=== PATIENT | female | born 1980 | race Caucasian/White ===

== ENCOUNTER 2018-12-21 15:14 | Inpatient (IN) ==
--- NOTE | 2018-12-21 16:18 | Emergency Department Note ---
Skin/Abscess/FB HPI - General Source: patient Mode of arrival: ambulatory Limitations: no limitations <Monica Hunt - Last Filed: 12/21/18 17:59> <QuintinDalton Tyler - Last Filed: 12/22/18 08:05> - General Chief complaint: Skin/Abscess/Foreign Body Stated complaint: right armpit abscess Time Seen by Provider: 12/21/18 15:29 - History of Present Illness HPI Narrative: 38-year-old female presents with non-improving abscess and cellulitis to the right axilla. Onset over week ago. She has been getting IV outpatient vancomycin therapy without relief. Dr. tinsley at wound care wanted her to come to the ER for further evaluation and possible admission today. There was some confusion on the vancomycin dosing and apparently she was under dose for the first several doses. Pharmacy has been dosing it since yesterday at the appropriate dose. Patient also states she was just told to warm pack it startin g yesterday. She is complaining of chills, unknown fever. States since starting the vancomycin she vomits several times a day and has constant nausea. States is definitely getting worse and not better. She is tearful and states she is in a lot of pain.It is continuing to drain purulent drainage. (Monica Hunt) - Related Data Home Medications Medication Instructions Recorded Confirmed ferrous sulfate 325 mg (65 mg See Dose Instructions PO QDAY tab 05/10/15 12/21/18 iron) tablet Albuterol Sulfate [Proair Hfa] 8.5 gm IH PRN PRN 01/09/17 12/21/18 Montelukast [Singular] 10 mg PO QDAY 01/09/17 12/21/18 albuterol sulfate HFA 90 See Rx Instructions INHALATION Q4H 10/10/17 12/21/18 mcg/actuation aerosol inhaler PRN g umeclidinium 62.5 mcg/actuation 1 inh INHALATION Q24H 10/10/17 12/21/18 blister powder for inhalation albuterol sulfate 2.5 mg/3 mL 2.5 mg INHALATION .Q4-5H PRN ml 02/18/18 12/21/18 (0.083 %) solution for nebulization budesonide-formoterol HFA 160 1 puff INHALATION BID g 02/18/18 12/21/18 mcg-4.5 mcg/actuation aerosol inhaler escitalopram 10 mg tablet 10 mg PO QDAY 02/18/18 12/21/18 triamcinolone acetonide 0.1 % 1 applic TOPICAL TIDP PRN g 02/18/18 12/21/18 topical cream Apixaban [Eliquis] 5 mg PO BID 12/07/18 12/21/18 losartan 100 mg tablet 100 mg PO QAM tab 12/16/18 12/21/18 omeprazole 40 mg capsule,delayed 40 mg PO QAM cap 12/16/18 12/21/18 release zolpidem 10 mg PO QHS PRN 12/16/18 12/21/18 Ascorbic Acid [Vitamin C with Chrissy 500 mg PO HS 12/18/18 12/21/18 Hips] Fluticasone/Vilanterol [Breo 1 puff INH DAILY 12/20/18 12/21/18 Ellipta 200-25 Mcg INH] RX: Hydrocodone/APAP 7.5/325Mg 1 tab PO Q4-6HP PRN 12/20/18 12/21/18 [[place] 7.5-325Mg] Previous Rx's Medication Instructions Recorded epinephrine 0.3 mg/0.3 mL 0.3 mg IM ONCE PRN #1 each 07/14/15 injection, auto-injector Allergies Allergy/AdvReac Type Severity Reaction Status Date / Time Amoxicillin Allergy Severe Anaphylaxis Verified 12/21/18 15:17 cephalexin Allergy Severe Swelling Verified 12/21/18 19:02 of Lip/Tongue/Throat Cephalosporins Allergy Severe Throat Verified 12/21/18 19:02 swelling doxycycline Allergy Severe Vomiting Verified 12/21/18 15:17 peanut Allergy Severe Anaphylaxis Verified 12/21/18 15:17 Penicillins Allergy Severe Anaphylaxis Verified 12/21/18 15:17 promethazine Allergy Severe Difficulty Verified 12/21/18 15:17 Breathing Sulfa (Sulfonamide Allergy Severe Hives Verified 12/21/18 15:17 Antibiotics) walnut Allergy Severe Anaphylaxis Verified 12/21/18 15:17 adhesive tape Allergy Intermediate Rash Verified 12/21/18 15:17 codeine Allergy Intermediate Hives Verified 12/21/18 15:17 [From Tylenol-Codeine #3] methocarbamol Allergy Mild Shakiness Verified 12/21/18 15:17 murillo pepper Allergy Mild Sores in Uncoded 12/20/18 21:15 mouth and throat Review of Systems All systems ED: reviewed and negative except as stated. 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 Surgical history ED: Reports: appendectomy, hysterectomy, orthopedic, other - Social History smoking status: Former smoker Alcohol use: Reports: Rarely Drug use: Reports: none <Monica Hunt - Last Filed: 12/21/18 17:59> - Past Medical History [facility] Narrative: Medical History (Last Updated 12/16/18 @ 13:13 by Leda Duarte) Chest wall pain (Chronic) Costochondral chest pain (Chronic) Insomnia (Chronic) Rib pain (Chronic) Peripheral edema (Chronic) Hypertension (Chronic) Localized swelling, mass and lump, left lower limb (Chronic) Seasonal allergies (Chronic) 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) Flank pain (Chronic) Acute sinusitis (Chronic) Sepsis (Chronic ~09/2018) SOB (shortness of breath) (Chronic) Morbid obesity (Chronic) Osteoarthritis of knees, bilateral (Chronic) Pulmonary embolism (Chronic) Respiratory failure (Chronic) Recurrent acute sinusitis (Chronic) Post-nasal drip (Chronic) Migraine headache (Chronic) Elevated blood pressure reading without diagnosis of hypertension (Chronic) GERD (gastroesophageal reflux disease) (Chronic) Personal history of anaphylaxis (Chronic) Anxiety (Chronic) Chronic sinusitis (Chronic) Night terrors (Chronic) Axillary lymphadenopathy (Chronic) Viral bronchitis (Chronic) Skin rash (Chronic) Right knee pain (Chronic) Cough (Chronic) Asthma exacerbation (Chronic) Chronic asthma (Chronic) Acute conjunctivitis, right eye (Chronic) Abdominal pain (Chronic) Pelvic pain (Chronic) Encounter for postoperative wound check (Chronic) Pain, dental (Chronic) Gastric acidity (Chronic) Allergic reaction (Chronic) Dental caries (Chronic) Dental abscess (Chronic) Low back pain (Chronic) Asthma with exacerbation (Chronic) Croup due to viral infection (Chronic) Asthma with acute exacerbation (Chronic) Nausea and vomiting (Chronic) Chronic abdominal pain (Chronic) Pelvic pain (Chronic) Acute exacerbation of chronic obstructive airways disease (Chronic) Bronchitis (Chronic) Right lower quadrant abdominal pain (Chronic) Abdominal pain (Chronic) Gastroenteritis (Chronic) Abdominal pain (Chronic) Gastritis (Chronic) Nausea & vomiting (Chronic) Animal bite of finger (Chronic 07/07/15) Epigastric abdominal pain (Chronic) Posttraumatic stress disorder (Chronic) History of hysterectomy (Chronic) Ovarian cyst (Chronic) Obesity (Chronic) Migraine (Chronic) Hip pain (Chronic) Asthma (Chronic) Anemia (Chronic) Abdominal pain, epigastric (Chronic 03/07/15) Kidney stones (Chronic ~2008) Pain of left calf (Resolved 03/21/15) Past Surgical History (Last Updated 12/16/18 @ 13:08 by Leda Duarte) History of tubal ligation (Chronic) History of tonsillectomy (Chronic) History of shoulder surgery (Chronic) History of nasal septoplasty (Chronic) History of partial hysterectomy (Chronic) Hx of appendectomy (Chronic) Hx of sinus surgery (Chronic) (Monica Hunt) Physical Exam Limitations: no limitations General appearance: alert, other (Tearful) Head: atraumatic, normocephalic, normal inspection Eye: Present: normal appearance. Absent: conjunctival injection ENT: normal exam, mucous membranes moist Neck: Present: normal inspection, trachea midline. Absent: tenderness, lymphadenopathy Chest: Present: symmetric chest wall rise Respiratory: Absent: respiratory distress, wheezes, accessory muscle use Cardiovascular: Present: regular rate Neurological: Present: alert, oriented X3 Psychiatric: Present: normal affect, normal mood Skin: Present: warm, dry, normal color, erythema (Right axilla with 4 cm abscess that is red and hard, slightly in the boggy in the center and is draining purulent drainage. Redness and cellulitis experience down mid axilla down the right chest wall, laterally 22 cm in diameter. Warm to touch.) <Monica Hunt - Last Filed: 12/21/18 17:59> Course <Monica Hunt - Last Filed: 12/21/18 17:59> Course Narrative: @1750 Dr. Goldstein accepted patient. (Monica Hunt) Vital Signs Temperature 98.0 F 12/21/18 15:14 Pulse Rate 89 12/21/18 15:14 Respiratory Rate 20 12/21/18 15:14 Blood Pressure 172/88 12/21/18 15:14 Pulse Oximetry (%) 100 12/21/18 15:14 Temperature 96.2 F L 12/22/18 07:24 Pulse Rate 72 12/22/18 07:24 Respiratory Rate 16 12/22/18 07:24 Blood Pressure 118/70 12/22/18 07:24 Pulse Oximetry (%) 91 12/22/18 07:24 Skin/Abscess/Foreign Body - Lab Data Result diagrams: 12/21/18 16:25 12/21/18 16:25 <Monica Hunt - Last Filed: 12/21/18 17:59> - Lab Data Result diagrams: 12/21/18 16:25 12/21/18 16:25 <Dalton Ribeiro - Last Filed: 12/22/18 08:05> - MDM Narrative Medical decision making narrative: Agree with diagnosis and treatment (Dalton Ribeiro) - Lab Data Lab Results 12/21/18 12/21/18 12/21/18 Range/Units 16:15 16:25 16:25 WBC 7.8 (4.5-11.0) K/mcL RBC 4.04 (4.00-5.20) M/mcL Hgb 11.8 L (12.0-15.0) g/dL Hct 36.1 (36.0-48.0) % MCV 89.6 (80.0-100.0) fL MCH 29.2 (26.0-34.0) pg MCHC 32.6 (31.0-36.0) g/dL RDW 14.3 (11.5-14.5) % Plt Count 543 H (140-440) K/mcL MPV 8.3 (7.4-10.4) fL Gran % 57.9 (38.0-78.0) % Lymph % (Auto) 29.6 (15.5-49.0) % [place] % (Auto) 9.4 (1.0-12.0) % Eos % (Auto) 2.7 (0.0-7.0) % Baso % (Auto) 0.4 (0.0-2.0) % Gran # 4.5 (1.8-8.0) K/mcL Lymph # (Auto) 2.3 (1.5-4.8) K/mcL [place] # (Auto) 0.7 (0.1-0.9) K/mcL Eos # (Auto) 0.2 (0.0-0.7) K/mcL Baso # (Auto) 0 (0.0-0.3) K/mcL VBG Lactic Acid 0.8 (0.5-2.0) mmol/L Sodium (133-145) mmol/L Potassium (3.3-5.1) mmol/L Chloride (96-108) mmol/L Carbon Dioxide (22-30) mmol/L Anion Gap (8-16) BUN (6-20) mg/dl Creatinine (0.6-1.1) mg/dl GFR Calculation Glucose (70-105) mg/dL Calcium (8.6-10.4) mg/dl Total Bilirubin (0.0-1.0) mg/dL AST (0-37) U/l ALT (0-40) U/l Alkaline Phosphatase (39-117) U/L Total Protein (5.9-8.4) gm/dL Albumin (3.2-5.2) gm/dL Globulin (2.2-3.7) gm/dL Albumin/Globulin Ratio (1.0-2.3) Urine Color Straw Urine Appearance Clear Urine pH 6.0 (5.0-9.0) Ur Specific [place] 1.006 (1.000-1.035) Urine Protein Neg (NEG) mg/dL Urine Glucose (UA) Negative (NEG) mg/dL Urine Ketones Neg (NEG) mg/dL Urine Occult Blood Neg (<0.03) mg/dL Urine Nitrate Neg (NEG) Urine Bilirubin Neg (NEG) mg/dL Urine Urobilinogen Neg (NEG) mg/dL Ur Leukocyte Esterase 75 A (NEG) /uL Urine RBC 0 (0-1) /hpf Urine WBC 1 (0-4) /hpf Ur Squamous Epith Cells 2 (0-4) /hpf Urine Bacteria 0 (0) /hpf Urine Mucus Few (0) /hpf Ur Culture Indicated? No HIV 1&2 Ag/Ab, 4th Gen 12/21/18 12/21/18 Range/Units 16:25 18:41 WBC (4.5-11.0) K/mcL RBC (4.00-5.20) M/mcL Hgb (12.0-15.0) g/dL Hct (36.0-48.0) % MCV (80.0-100.0) fL MCH (26.0-34.0) pg MCHC (31.0-36.0) g/dL RDW (11.5-14.5) % Plt Count (140-440) K/mcL MPV (7.4-10.4) fL Gran % (38.0-78.0) % Lymph % (Auto) (15.5-49.0) % Wilkes % (Auto) (1.0-12.0) % Eos % (Auto) (0.0-7.0) % Baso % (Auto) (0.0-2.0) % Gran # (1.8-8.0) K/mcL Lymph # (Auto) (1.5-4.8) K/mcL [place] # (Auto) (0.1-0.9) K/mcL Eos # (Auto) (0.0-0.7) K/mcL Baso # (Auto) (0.0-0.3) K/mcL VBG Lactic Acid (0.5-2.0) mmol/L Sodium 139 (133-145) mmol/L Potassium 3.3 (3.3-5.1) mmol/L Chloride 103 (96-108) mmol/L Carbon Dioxide 27 (22-30) mmol/L Anion Gap 9.0 (8-16) BUN 4 L (6-20) mg/dl Creatinine 0.7 (0.6-1.1) mg/dl GFR Calculation 109 Glucose 96 (70-105) mg/dL Calcium 9.0 (8.6-10.4) mg/dl Total Bilirubin 0.2 (0.0-1.0) mg/dL AST 17 (0-37) U/l ALT 21 (0-40) U/l Alkaline Phosphatase 59 (39-117) U/L Total Protein 6.8 (5.9-8.4) gm/dL Albumin 3.5 (3.2-5.2) gm/dL Globulin 3.3 (2.2-3.7) gm/dL Albumin/Globulin Ratio 1.1 (1.0-2.3) Urine Color Urine Appearance Urine pH (5.0-9.0) Ur Specific [place] (1.000-1.035) Urine Protein (NEG) mg/dL Urine Glucose (UA) (NEG) mg/dL Urine Ketones (NEG) mg/dL Urine Occult Blood (<0.03) mg/dL Urine Nitrate (NEG) Urine Bilirubin (NEG) mg/dL Urine Urobilinogen (NEG) mg/dL Ur Leukocyte Esterase (NEG) /uL Urine RBC (0-1) /hpf Urine WBC (0-4) /hpf Ur Squamous Epith Cells (0-4) /hpf Urine Bacteria (0) /hpf Urine Mucus (0) /hpf Ur Culture Indicated? 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
[2018-12-21 17:36] LABS: Basophils # (Auto) 0 K/mcL (0.0-0.3); Basophils % (Auto) 0.4 % (0.0-2.0); Eosinophils # (Auto) 0.2 K/mcL (0.0-0.7); Eosinophils % (Auto) 2.7 % (0.0-7.0); Granulocytes % (Auto) 57.9 % (38.0-78.0); Lymphocytes # (Auto) 2.3 K/mcL (1.5-4.8); Lymphocytes % (Auto) 29.6 % (15.5-49.0); Mean Cell Volume 89.6 fL (80.0-100.0); Mean Corpuscular HGB Conc 32.6 g/dL (31.0-36.0); Monocytes # (Auto) 0.7 K/mcL (0.1-0.9); Monocytes % (Auto) 9.4 % (1.0-12.0); Platelet Count 543 K/mcL (140-440); RBC 4.04 M/mcL (4.00-5.20); Red Cell Distribution Width 14.3 % (11.5-14.5)
[2018-12-21 17:37] LABS: ALT/SGPT 21 U/l (0-40); Albumin 3.5 gm/dL (3.2-5.2); Albumin/Globulin Ratio 1.1 (1.0-2.3); Alkaline Phosphatase 59 U/L (39-117); Blood Urea Nitrogen 4 mg/dl (6-20)
--- NOTE | 2018-12-21 18:00 | Emergency Department Note ---
ED Note Addendum Note Addendum: Lab and x-ray reviewed with Dr. Goldstein has been contacted patient to be admitted agree with diagnosis and treatment
[2018-12-21] MEDS ORDERED: KETOROLAC 15 MG/ML VIAL IV ONE ×2 (18:01→19:03)
[2018-12-21] MEDS ORDERED: HYDROmorphone 2 MG/ML VIAL IV PRN (18:01)
[2018-12-21 18:03] LABS: Appearance,Urine CLEAR; Bacteria,Urine 0 /hpf (0); Bilirubin,Urine NEG (NEG); Color,Urine STRAW; Glucose,Urine (UA) NEGATIVE (NEG); Leukocyte Esterase,Urine 75 /uL (NEG); Mucus,Urine FEW /hpf (0); Protein,Urine NEG (NEG); Specific Gravity,Urine 1.006 (1.000-1.035); Urine Blood NEG mg/dL (<0.03); Urine RBC 0 /hpf (0-1); Urine Squamous Epithelial Cell 2 /hpf (0-4); Urine WBC 1 /hpf (0-4); Urobilinogen,Urine NEG (NEG)
--- NOTE | 2018-12-21 18:29 | Internal Med History&Physical ---
Medical - H&P: HPI Patient information: Note initiated : 12/21/18 at 6:21 pm Service Date, if different from initiated Date: [] Patient: Yulia Loyd a 38 y/o F admitted on for right armpit abscess. Chief Complaint: [] History of present illness: Ms. Loyd is a 38 year old F with morbid obesity, htn, asthma presents to the er from the wound care clinic for evaluation of wound in the right axillary region. The patient notes that this started 2 weeks ago started as a small pustule which spread gradually. She was here I believe last week and was evaluated for same, had an incision and drainage done and was asked to follow-up in the wound care clinic. She was also started on vancomycin as an outpatient. She was seen in the wound care clinic today and was deemed that the infection was not getting better but indeed spreading. The patient has had difficulty in moving her arm because of the pain. She therefore presented back to the emergency room. The patient admits to having some fever and chills in the past which is not that at this time, she admits to having some nausea, and severe pain in the right axilla. Pain is worse with movement better with pain meds. She has been taking vancomycin for same and she is allergic to penicillin group of antibiotics. In the emergency room on presentation patient was afebrile, hemodynamically stable. Labs reviewed unremarkable. Patient had a huge area of induration in the right axilla, 8 x 8 cm in diameter with surrounding erythema warm to touch and very tender. I was able to express some pus on lightly expressing the indurated region. Ultrasound of the region was done, the tech noted that there is no evidence of obvious abscess or pocket lesions, clinically however there seems to be an abscess there. 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) Flank pain (Chronic) Acute sinusitis (Chronic) Sepsis (Chronic ~09/2018) SOB (shortness of breath) (Chronic) Morbid obesity (Chronic) Osteoarthritis of knees, bilateral (Chronic) Pulmonary embolism (Chronic) Respiratory failure (Chronic) Recurrent acute sinusitis (Chronic) Post-nasal drip (Chronic) Migraine headache (Chronic) Elevated blood pressure reading without diagnosis of hypertension (Chronic) GERD (gastroesophageal reflux disease) (Chronic) Personal history of anaphylaxis (Chronic) Anxiety (Chronic) Chronic sinusitis (Chronic) Night terrors (Chronic) Axillary lymphadenopathy (Chronic) Viral bronchitis (Chronic) Skin rash (Chronic) Right knee pain (Chronic) Cough (Chronic) Asthma exacerbation (Chronic) Chronic asthma (Chronic) Acute conjunctivitis, right eye (Chronic) Abdominal pain (Chronic) Pelvic pain (Chronic) Encounter for postoperative wound check (Chronic) Pain, dental (Chronic) Gastric acidity (Chronic) Allergic reaction (Chronic) Dental caries (Chronic) Dental abscess (Chronic) Low back pain (Chronic) Asthma with exacerbation (Chronic) Croup due to viral infection (Chronic) Asthma with acute exacerbation (Chronic) Nausea and vomiting (Chronic) Chronic abdominal pain (Chronic) Pelvic pain (Chronic) Acute exacerbation of chronic obstructive airways disease (Chronic) Bronchitis (Chronic) Right lower quadrant abdominal pain (Chronic) Abdominal pain (Chronic) Gastroenteritis (Chronic) Abdominal pain (Chronic) Gastritis (Chronic) Nausea & vomiting (Chronic) Animal bite of finger (Chronic 07/07/15) Epigastric abdominal pain (Chronic) Posttraumatic stress disorder (Chronic) History of hysterectomy (Chronic) Ovarian cyst (Chronic) Obesity (Chronic) Migraine (Chronic) Hip pain (Chronic) Asthma (Chronic) Anemia (Chronic) Abdominal pain, epigastric (Chronic 03/07/15) Kidney stones (Chronic ~2008) Pain of left calf (Resolved 03/21/15) Surgical history: Past Surgical History (Last Updated 12/16/18 @ 13:08 by Leda Duarte) History of tubal ligation (Chronic) History of tonsillectomy (Chronic) History of shoulder surgery (Chronic) History of nasal septoplasty (Chronic) History of partial hysterectomy (Chronic) Hx of appendectomy (Chronic) Hx of sinus surgery (Chronic) Pertinent family history: Family History (Last Updated 12/16/18 @ 11:15 by Leda Duarte) Unknown Asthma Essential hypertension Lymphoma Malignant neoplasm of ovary 5 Maternal Aunts Malignant neoplasm of breast Maternal Aunt Malignant neoplasm of ovary Hodgkin disease Grandmother Lymphoma Grandfather Diabetes Father Essential hypertension Heart disease, Onset Age: 35 History of heart bypass surgery History of heart artery stent Myocardial infarction Mother Lymphoma, Onset Age: 58 Medical - H&P: Meds Home Medications Medication Instructions Recorded Confirmed Type ferrous sulfate 325 mg (65 mg See Dose Instructions PO QDAY tab 05/10/15 12/21/18 History iron) tablet epinephrine 0.3 mg/0.3 mL 0.3 mg IM ONCE PRN #1 each 07/14/15 12/21/18 Rx injection, auto-injector Albuterol Sulfate [Proair Hfa] 8.5 gm IH PRN PRN 01/09/17 12/21/18 History Montelukast [Singular] 10 mg PO QDAY 01/09/17 12/21/18 History albuterol sulfate HFA 90 See Rx Instructions INHALATION Q4H 10/10/17 12/21/18 History mcg/actuation aerosol inhaler PRN g umeclidinium 62.5 mcg/actuation 1 inh INHALATION Q24H 10/10/17 12/21/18 History blister powder for inhalation albuterol sulfate 2.5 mg/3 mL 2.5 mg INHALATION .Q4-5H ml 02/18/18 12/21/18 History (0.083 %) solution for nebulization budesonide-formoterol HFA 160 1 puff INHALATION BID g 02/18/18 12/21/18 History mcg-4.5 mcg/actuation aerosol inhaler escitalopram 10 mg tablet 10 mg PO QDAY 02/18/18 12/21/18 History triamcinolone acetonide 0.1 % 1 applic TOPICAL TIDP PRN g 02/18/18 12/21/18 History topical cream Apixaban [Eliquis] 5 mg PO BID 12/07/18 12/21/18 History losartan 100 mg tablet 100 mg PO QAM tab 12/16/18 12/21/18 History omeprazole 40 mg capsule,delayed 40 mg PO QAM cap 12/16/18 12/21/18 History release zolpidem 10 mg PO QHS PRN 12/16/18 12/21/18 History Ascorbic Acid [Vitamin C with Chrissy 500 mg PO DAILY 12/18/18 12/21/18 History Hips] Fluticasone/Vilanterol [Breo 1 puff INH DAILY 12/20/18 12/21/18 History Ellipta 200-25 Mcg INH] Hydrocodone/APAP 7.5/325Mg [[place] 1 tab PO Q4-6HP PRN 12/20/18 12/21/18 History 7.5-325Mg] Allergies Allergy/AdvReac Type Severity Reaction Status Date / Time Amoxicillin Allergy Severe Anaphylaxis Verified 12/21/18 15:17 doxycycline Allergy Severe Vomiting Verified 12/21/18 15:17 peanut Allergy Severe Anaphylaxis Verified 12/21/18 15:17 Penicillins Allergy Severe Anaphylaxis Verified 12/21/18 15:17 promethazine Allergy Severe Difficulty Verified 12/21/18 15:17 Breathing Sulfa (Sulfonamide Allergy Severe Hives Verified 12/21/18 15:17 Antibiotics) walnut Allergy Severe Anaphylaxis Verified 12/21/18 15:17 adhesive tape Allergy Intermediate Rash Verified 12/21/18 15:17 cephalexin Allergy Intermediate Swelling Verified 12/21/18 15:17 of Lip/Tongue/Throat Cephalosporins Allergy Intermediate Throat Verified 12/21/18 15:17 swelling codeine Allergy Intermediate Hives Verified 12/21/18 15:17 [From Tylenol-Codeine #3] methocarbamol Allergy Mild Shakiness Verified 12/21/18 15:17 murillo pepper Allergy Mild Sores in Uncoded 12/20/18 21:15 mouth and throat Medical - H&P: Exam - Constitutional Vitals: Temp Pulse Resp BP Pulse Ox 98.0 F 84 82 H 177/88 100 12/21/18 15:14 12/21/18 18:02 12/21/18 16:39 12/21/18 18:02 12/21/18 18:02 Exam: GENERAL: The patient is a well-developed, well-nourished in no apparent distress. Is alert and oriented x3. Morbidly obese individual VITAL SIGNS: Reviewed and as noted elsewhere. HEENT: Head is normocephalic and atraumatic. Extraocular muscles are intact. Pupils are equal, round, and reactive to light. Nares appeared normal. Mouth appears any without lesions. Mucous membranes are moist. NECK: Normal to inspection, Supple, No lymphadenopathy or thyromegaly. LUNGS: Air entry equal on both sides, no wheezing, crackles or rhonchi noted. No accessory muscles of respiration HEART: Regular rate and rhythm normal, S1 and S2 heard, no Gallop, S3 or Rub Noted, No Gross murmur heard. ABDOMEN: Soft, nontender, and nondistended. Positive bowel sounds. No hepatosplenomegaly was noted. EXTREMITIES: No cyanosis, clubbing, rash, lesions or edema. Right axilla-area of induration, 8 x 8 cm irregular, firm, able to express pus from the mouth of the lesion, surrounding cellulitis noted NEUROLOGIC: Cranial nerves II through XII are grossly intact. Motor and Sensory System Grossly Intact PSYCHIATRIC: Normal affect, Normal Mood. Appropriate Behavior. SKIN: No ulceration or wounds noted, No jaundice, No rash noted. Medical - H&P: Reslt - Labs CBC & Chem 7: 12/21/18 16:25 12/21/18 16:25 Labs: Short CBC 12/21/18 Range/Units 16:25 WBC 7.8 (4.5-11.0) K/mcL Hgb 11.8 L (12.0-15.0) g/dL Hct 36.1 (36.0-48.0) % Plt Count 543 H (140-440) K/mcL BMP 12/21/18 16:25 Sodium 139 Potassium 3.3 Chloride 103 Carbon Dioxide 27 BUN 4 L Creatinine 0.7 Glucose 96 Calcium 9.0 Liver Function 12/21/18 Range/Units 16:25 Total Bilirubin 0.2 (0.0-1.0) mg/dL AST 17 (0-37) U/l ALT 21 (0-40) U/l Alkaline Phosphatase 59 (39-117) U/L Albumin 3.5 (3.2-5.2) gm/dL Urine 12/21/18 Range/Units 16:15 Urine Color Straw Urine Appearance Clear Urine pH 6.0 (5.0-9.0) Ur Specific [place] 1.006 (1.000-1.035) Urine Protein Neg (NEG) mg/dL Urine Glucose (UA) Negative (NEG) mg/dL Medical - H&P: A/P - Narrative A/P Narrative: A/P Cellulitis and Abscess -Surgery consult, IV antibiotics NPO MN Pt is on eliquis, last dose? will need to review, hold for now. a1c checked this year is neg check h1v status DVT -due to picc line, in september last year, on eliquis for nwo Asthma no wheezing noted, resume home meds duonebs for q6hrs for now Morbid obesty outpatient follow up HTN hold losartan for now, given plan for surgery monitor bp, anxiety resume home meds DVT on eliquis held for now, resume post op Full code Regular diet for now NPO MN Social History - Social History marital status: occupational status: unemployed, employed hx recent travel: No - Exercise physical activity: other - Tobacco smoking status: Former smoker - Alcohol alcohol intake frequency: does not drink - Substance use substance use type: does not use
[2018-12-21] MEDS ORDERED: ACETAMINOPHEN 650 MG/65 ML BOTTLE IV PRN (19:03)
[2018-12-21] MEDS ORDERED: KETOROLAC 15 MG/ML VIAL IV PRN (19:03)
[2018-12-21] MEDS ORDERED: ONDANSETRON 4 MG/2 ML VIAL IV PRN (19:03)
[2018-12-21] MEDS ORDERED: NALOXONE HCL 0.4 MG/ML VIAL IV PRN (19:03)
[2018-12-21] MEDS ORDERED: ALBUTEROL SULFATE 2.5 MG/3 ML NEBULIZER NEB PRN (19:03)
[2018-12-21] MEDS ORDERED: VANCOMYCIN PER PHARMACY IV SCH (19:03)
[2018-12-21] MEDS ORDERED: IPRATROPIUM/ALBUTEROL 3 ML AMPUL.NEB NEB ONE (19:49)
[2018-12-21] MEDS: IPRATROPIUM/ALBUTEROL 3 ML AMPUL.NEB NEB SCH (19:52)
[2018-12-21] MEDS: oxyCODONE HCL 5 MG TABLET PO PRN (20:11)
[2018-12-21] MEDS: 0.9 % SODIUM CHLORIDE 10 ML SYRINGE IV SCH (20:55)
[2018-12-21] MEDS: 0.45 % SODIUM CHLORIDE 1,000 ML IV SCH (20:55)
[2018-12-21] MEDS: SENNOSIDES 1 TABLET PO SCH (21:09)
[2018-12-21] MEDS: VANCOMYCIN 1,500 MG in 0.9 % SODIUM CHLORIDE 500 ML IV SCH (21:11)
[2018-12-22] MEDS: IPRATROPIUM/ALBUTEROL 3 ML AMPUL.NEB NEB SCH ×4 (00:46→19:27)
--- NOTE | 2018-12-22 07:38 | Ultrasound Report ---
History: Right axillary abscess FINDINGS: Beneath the region of erythema on the skin in the right axilla there is heterogeneous fat. No abscess or seroma are present. There is no evidence of a mass and no discrete lymph nodes are identified. IMPRESSION: Cellulitis in the right axilla and no evidence of an abscess Interpreted and Authenticated by: Juancarlos Munoz 12/22/18
[2018-12-22] MEDS: 0.45 % SODIUM CHLORIDE 1,000 ML IV SCH ×2 (08:00→18:28)
[2018-12-22] MEDS: 0.9 % SODIUM CHLORIDE 10 ML SYRINGE IV SCH ×4 (08:00→20:28)
[2018-12-22] MEDS ORDERED: MUPIROCIN CRM 2% 15 GM TUBE TOPICAL SCH (09:36)
--- NOTE | 2018-12-22 10:38 | Cat Scan Report ---
CLINICAL INFORMATION: Left flank pain with hematuria COMPARISON: 05/20/16 TECHNIQUE: The abdomen was imaged without oral or IV contrast, scanning from the diaphragm to the symphysis pubis. Sagittal and coronal reformats were created. FINDINGS: There are multiple bands of discoid atelectasis in both lung bases. These have increased in number and size since 2016. 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 This is also a chronic stable finding. No hiatus hernia is present. Evaluation of abdominal organs without contrast is somewhat limited. The liver is normal in size and homogeneous. There may be very mild diffuse fatty infiltration. The gallbladder and bile ducts are normal. The spleen, pancreas and adrenals are normal. The kidneys are normal in size shape and contour and there is no evidence for kidney stone, cyst, mass, hydronephrosis or pyelonephritis in either kidney. Both ureters are decompressed. There is normal volume of urine within the bladder. Bladder appears normal. The uterus has been removed. The the left ovary appears normal and the right ovary is not identified.. The bowel gas pattern is normal. There are couple noninflamed diverticula in the descending colon and sigmoid. No mass, abscess or adenopathy are present within the abdomen or pelvis. There is edema in the deep subcutaneous fat posterior to the upper lumbar spine. The spine appears normal. IMPRESSION: Discoid atelectasis in both lung bases No acute abnormality is seen within the abdomen or pelvis. The kidneys and urinary tracts are normal. Interpreted and Authenticated by: Juancarlos Munoz 12/22/18
[2018-12-22] MEDS: VANCOMYCIN 1,500 MG in 0.9 % SODIUM CHLORIDE 500 ML IV SCH ×2 (11:53→21:26)
[2018-12-22] MEDS: oxyCODONE HCL 5 MG TABLET PO PRN (11:53)
--- NOTE | 2018-12-22 12:25 | General Surgery Consult Note ---
History of Present Illness Patient information: Note initiated : 12/22/18 at 12:23 pm Service Date, if different from initiated Date: [] Patient: Yulia Loyd 38 y/o F admitted on 12/21/18 for right armpit abscess. Chief Complaint: [] Reason for consult: other (right axillary abscess) History of present illness: 37-year-old female admitted with abscess of right axilla. Patient had abscess of right axilla in January 2018 according to the emergency room record. I&D was done and she was treated with antibiotics. Apparently that improved and she did well. 2 weeks ago she developed a mass of her right axilla became progressively larger. She was seen in the emergency room on 17 December at incision and drainage. She has been treated with IV vancomycin and followed in the wound clinic. She states that symptoms have become progressively worse and she was seen last evening and admitted. She presents with extensive matted lymphadenopathy of the right axilla along the lower aspect. Review of Systems - Constitutional headache(s), snoring, weight gain - EENT Nose, mouth and throat: headache(s), mouth pain, other (history of multiple Dental cavities and infection) - Cardiovascular no chest pain with activity, no lightheadedness, no palpatations, no rapid heart rate, no syncope - Respiratory cough, dyspnea on exertion, wheezing, snoring, chest congestion - Gastrointestinal abdominal pain, no constipation, no heartburn, no nausea, no vomiting - Genitourinary Genitourinary: no breast mass, no breast pain, no dysuria, no urinary frequency, no urinary incontinence - Musculoskeletal arthralgias, back pain, myalgias, radiating pain into limb - Integumentary no non-healing lesions, no pruritus, no rash - Neurological headache(s) (a regular diet), no confusion, no dizziness - Psychiatric anxiety, depression, hallucinations - Endocrine no fatigue, no palpitations - Hematologic/Lymphatic other ( axillary lymphadenopathy), no easy bleeding, no easy bruising - Allergic/Immunologic wheezing, no tongue swelling, no throat swelling, no uticaria, no lip swelling Past History Past medical history: History of chronic asthma History of GERD Past surgical history: Appendectomy Hysterectomy Tonsillectomy Tubal ligation Right shoulder surgery 3 Past family history: Hypertension Hodgkin's lymphoma Breast cancer Ovarian cancer Diabetes mellitus Coronary artery Past social history: History of tobacco use stopped 4 years ago Denies alcohol use Denies drug use Medications and Allergies Home Medications Medication Instructions Recorded Confirmed Type ferrous sulfate 325 mg (65 mg See Dose Instructions PO QDAY tab 05/10/15 12/21/18 History iron) tablet epinephrine 0.3 mg/0.3 mL 0.3 mg IM ONCE PRN #1 each 07/14/15 12/21/18 Rx injection, auto-injector Albuterol Sulfate [Proair Hfa] 8.5 gm IH PRN PRN 01/09/17 12/21/18 History Montelukast [Singular] 10 mg PO QDAY 01/09/17 12/21/18 History albuterol sulfate HFA 90 See Rx Instructions INHALATION Q4H 10/10/17 12/21/18 History mcg/actuation aerosol inhaler PRN g umeclidinium 62.5 mcg/actuation 1 inh INHALATION Q24H 10/10/17 12/21/18 History blister powder for inhalation albuterol sulfate 2.5 mg/3 mL 2.5 mg INHALATION .Q4-5H PRN ml 02/18/18 12/21/18 History (0.083 %) solution for nebulization budesonide-formoterol HFA 160 1 puff INHALATION BID g 02/18/18 12/21/18 History mcg-4.5 mcg/actuation aerosol inhaler escitalopram 10 mg tablet 10 mg PO QDAY 02/18/18 12/21/18 History triamcinolone acetonide 0.1 % 1 applic TOPICAL TIDP PRN g 02/18/18 12/21/18 History topical cream Apixaban [Eliquis] 5 mg PO BID 12/07/18 12/21/18 History losartan 100 mg tablet 100 mg PO QAM tab 12/16/18 12/21/18 History omeprazole 40 mg capsule,delayed 40 mg PO QAM cap 12/16/18 12/21/18 History release zolpidem 10 mg PO QHS PRN 12/16/18 12/21/18 History Ascorbic Acid [Vitamin C with Chrissy 500 mg PO HS 12/18/18 12/21/18 History Hips] Fluticasone/Vilanterol [Breo 1 puff INH DAILY 12/20/18 12/21/18 History Ellipta 200-25 Mcg INH] Hydrocodone/APAP 7.5/325Mg [[place] 1 tab PO Q4-6HP PRN 12/20/18 12/21/18 History 7.5-325Mg] Allergies Allergy/AdvReac Type Severity Reaction Status Date / Time Amoxicillin Allergy Severe Anaphylaxis Verified 12/21/18 15:17 cephalexin Allergy Severe Swelling Verified 12/21/18 19:02 of Lip/Tongue/Throat Cephalosporins Allergy Severe Throat Verified 12/21/18 19:02 swelling doxycycline Allergy Severe Vomiting Verified 12/21/18 15:17 peanut Allergy Severe Anaphylaxis Verified 12/21/18 15:17 Penicillins Allergy Severe Anaphylaxis Verified 12/21/18 15:17 promethazine Allergy Severe Difficulty Verified 12/21/18 15:17 Breathing Sulfa (Sulfonamide Allergy Severe Hives Verified 12/21/18 15:17 Antibiotics) walnut Allergy Severe Anaphylaxis Verified 12/21/18 15:17 adhesive tape Allergy Intermediate Rash Verified 12/21/18 15:17 codeine Allergy Intermediate Hives Verified 12/21/18 15:17 [From Tylenol-Codeine #3] methocarbamol Allergy Mild Shakiness Verified 12/21/18 15:17 murillo pepper Allergy Mild Sores in Uncoded 12/20/18 21:15 mouth and throat Exam Temp Pulse Resp BP Pulse Ox 97.5 F 64 18 122/68 93 12/22/18 11:17 12/22/18 11:17 12/22/18 11:17 12/22/18 11:17 12/22/18 11:17 - General physical appearance well developed, well nourished, no distress, moderate pain, obese - Eyes PERRL, normal ocular movement - ENT normal pinna, normal nares, normal mucosa, no hearing loss, no congestion - Head Head exam IM: Present: atraumatic, normocephalic - Neck no masses, no bruits, trachea midline, no lymphadenopathy, no venous distension - Cardiovascular Cardiovascular exam IM: Present: normal rate and rhythm, RRR, +S1, +S2. Absent: irregular rhythm, JVD, systolic murmur, tachycardia - Respiratory normal expansion, normal respiratory effort, clear to auscultation - Abdomen Abdomen: Present: soft, non tender, bowel sounds, distended (obese; mildly distended; good active bowels; no tenderness; large panniculus) Hernia: Present: none - Genitourinary Present: normal external genitalia - Integumentary Present: no rash, no growths, no abnormal pigmentation, other ( extensive lymphadenopathy right lower axilla with purulent drainage; multiple matted nodes) - Neurologic Present: normal coordination, normal sensation - Musculoskeletal Present: normal gait, normal posture - Psychiatric Present: oriented to time, oriented to person, oriented to place, speech is normal, memory intact Results - Labs 12/21/18 16:25 12/21/18 16:25 Abnormal lab results 12/21/18 12/21/18 12/21/18 Range/Units 16:15 16:25 16:25 Hgb 11.8 L (12.0-15.0) g/dL Plt Count 543 H (140-440) K/mcL BUN 4 L (6-20) mg/dl Ur Leukocyte Esterase 75 A (NEG) /uL Diabetes panel 12/21/18 Range/Units 16:25 Sodium 139 (133-145) mmol/L Potassium 3.3 (3.3-5.1) mmol/L Chloride 103 (96-108) mmol/L Carbon Dioxide 27 (22-30) mmol/L BUN 4 L (6-20) mg/dl Creatinine 0.7 (0.6-1.1) mg/dl Glucose 96 (70-105) mg/dL Calcium 9.0 (8.6-10.4) mg/dl AST 17 (0-37) U/l ALT 21 (0-40) U/l Alkaline Phosphatase 59 (39-117) U/L Total Protein 6.8 (5.9-8.4) gm/dL Albumin 3.5 (3.2-5.2) gm/dL Calcium panel 12/21/18 Range/Units 16:25 Calcium 9.0 (8.6-10.4) mg/dl Albumin 3.5 (3.2-5.2) gm/dL Pituitary panel 12/21/18 Range/Units 16:25 Sodium 139 (133-145) mmol/L Potassium 3.3 (3.3-5.1) mmol/L Chloride 103 (96-108) mmol/L Carbon Dioxide 27 (22-30) mmol/L BUN 4 L (6-20) mg/dl Creatinine 0.7 (0.6-1.1) mg/dl Glucose 96 (70-105) mg/dL Calcium 9.0 (8.6-10.4) mg/dl Adrenal panel 12/21/18 Range/Units 16:25 Sodium 139 (133-145) mmol/L Potassium 3.3 (3.3-5.1) mmol/L Chloride 103 (96-108) mmol/L Carbon Dioxide 27 (22-30) mmol/L BUN 4 L (6-20) mg/dl Creatinine 0.7 (0.6-1.1) mg/dl Glucose 96 (70-105) mg/dL Calcium 9.0 (8.6-10.4) mg/dl Total Bilirubin 0.2 (0.0-1.0) mg/dL AST 17 (0-37) U/l ALT 21 (0-40) U/l Alkaline Phosphatase 59 (39-117) U/L Total Protein 6.8 (5.9-8.4) gm/dL Albumin 3.5 (3.2-5.2) gm/dL All other labs normal. Assessment and Plan (1) Axillary lymphadenopathy Continue with present IV antibiotics We'll schedule superficial lymphadenectomy right axilla with lower third of her axillary nodes on the right. deep nodes will not beremoved Status: Chronic (2) Cutaneous abscess of right axilla Status: Acute (3) Asthma with status asthmaticus in adult Status: Acute Qualifiers: Asthma severity: severe Asthma persistence: persistent Qualified Code(s): J45.52 - Severe persistent asthma with status asthmaticus (4) Acute exacerbation of chronic obstructive airways disease Continue home inhalers and medication Status: Chronic (5) GERD (gastroesophageal reflux disease) Continue home medications Status: Chronic (6) Osteoarthritis of knees, bilateral Status: Chronic
--- NOTE | 2018-12-22 12:43 | Internal Med Progress Note ---
Medical - PN: Subj Patient information: Note initiated : 12/22/18 at 12:41 pm Service Date, if different from initiated Date: [] Patient: Yulia Loyd a 38 y/o F admitted on 12/21/18 for right armpit abscess. Chief Complaint: [] Interval history: Ms. Loyd is a 38 year old F with morbid obesity, htn, asthma presents to the er from the wound care clinic for evaluation of wound in the right axillary region. The patient notes that this started 2 weeks ago started as a small pustule which spread gradually. She was here I believe last week and was evaluated for same, had an incision and drainage done and was asked to follow-up in the wound care clinic. She was also started on vancomycin as an outpatient. She was seen in the wound care clinic today and was deemed that the infection was not getting better but indeed spreading. The patient has had difficulty in moving her arm because of the pain. She therefore presented back to the emergency room. The patient admits to having some fever and chills in the past which is not that at this time, she admits to having some nausea, and severe pain in the right axilla. Pain is worse with movement better with pain meds. She has been taking vancomycin for same and she is allergic to penicillin group of antibiotics. In the emergency room on presentation patient was afebrile, hemodynamically stable. Labs reviewed unremarkable. Patient had a huge area of induration in the right axilla, 8 x 8 cm in diameter with surrounding erythema warm to touch and very tender. I was able to express some pus on lightly expressing the indurated region. Ultrasound of the region was done, the tech noted that there is no evidence of obvious abscess or pocket lesions, clinically however there seems to be an abscess there. Patient will be admitted to the hospital for further management general surgery will be consulted 2/5 Pt seen examine, complained about flank pain and some blood in urine ct abdomen pelvis is neg right axilla better today from erthema prospective, but still quite tender surgery consult awaited, continue antibiotics. Pertinent ROS: Denies headache, dizziness Denies chest pain, palpitations Denies cough or shortness of breath Denies abdominal pain, nausea or vomiting. Flank pain present in AM resolved - Constitutional Vitals: Vital Signs Temp Pulse Resp BP Pulse Ox 97.5 F 64 18 122/68 93 12/22/18 11:17 12/22/18 11:17 12/22/18 11:17 12/22/18 11:17 12/22/18 11:17 Period Temp Pulse Resp BP Sys/Fernandez Pulse Ox Last 24 Hr 96.2 F-98.2 F 64-92 16-82 112-177/68-102 91-100 Intake and Output 12/21/18 12/22/18 12/22/18 21:59 05:59 13:59 Intake Total 1280 Output Total 200 200 300 Balance -200 1080 -300 Weight 308 lb 8 oz 308 lb 8 oz Patient Weight 12/23/18 05:59 Weight 308 lb 8 oz Intake & Output: Intake & Output 12/21/18 12/22/18 12/22/18 21:59 05:59 13:59 Intake Total 1280 Output Total 200 200 300 Balance -200 1080 -300 Weight 308 lb 8 oz 308 lb 8 oz Intake: IV 500 Vancomycin 1,500 mg In Sodium 500 Chloride 0.9% 500 ml @ 333.3 mls/hr IV Q12H [facility] Rx#: [id number] Oral 780 Output: Void Amount 200 200 300 Other: Urine Appearance Clear Clear Urine Color Light Geraldine Light Geraldine Urine Odor Strong Strong Exam: Constitutional; Afebrile, cooperative, alert, not in distress. Respiratory system: Air Entry equal on both sides, No crackles or wheezing, no rhonchi. CVS- Rate rhythm regular, S1,S2 heard, no gallop, no rub. Abdomen- Soft nontender abdomen, no organomegaly, no tenderness, no guarding or rigidity, morbidly obese [employer]- AOOx3, moving all extremities, no gross focal deficit noted. Right axilla, erythema improved, tenderness still present. Medical - PN: Obj Da - Labs CBC & Chem 7: 12/21/18 16:25 12/21/18 16:25 Labs: Abnormal Lab Results 12/21/18 12/21/18 12/21/18 16:25 16:25 16:15 Hgb 11.8 L Plt Count 543 H BUN 4 L Ur Leukocyte Esterase 75 A Meds: Medications Albuterol Sulfate (Ventolin) 2.5 mg NEB Q2HP PRN PRN Reason: Shortness Of Breath Albuterol/Ipratropium (Duoneb) 3 ml NEB Q6HRT [facility] Last Admin: 02/05/19 07:36 Dose: Not Given Documented by: Sodium Chloride (Sodium Chloride 0.45%) 1,000 mls @ 84 mls/hr IV .[id number] [facility] Last Admin: 12/22/18 08:00 Dose: Not Given Documented by: Acetaminophen (Ofirmev) 650 mg in 65 mls @ 130 mls/hr IV Q6HP PRN PRN Reason: PAIN/FEVER > 101 Vancomycin HCl 1,500 mg/ (Sodium Chloride) 500 mls @ 333.3 mls/hr IV Q12H [facility] Last Admin: 12/22/18 11:53 Dose: 333.3 mls/hr Documented by: Ketorolac Tromethamine (Toradol) 15 mg IV Q6HP PRN PRN Reason: Pain Stop: 12/23/18 18:35 Morphine Sulfate (Morphine) 2 mg IV Q2HP PRN PRN Reason: PAIN LEVEL > 6 Last Admin: 12/22/18 10:42 Dose: 2 mg Documented by: Mupirocin (Bactroban Oint 2%) 1 dose TOPICAL TID [facility] Naloxone HCl (Narcan) 0.1 mg IV Q2MIN PRN PRN Reason: Opiate Reversal Ondansetron HCl (Zofran) 4 mg IV Q6HP PRN PRN Reason: Nausea And Vomiting Last Admin: 12/21/18 21:16 Dose: 4 mg Documented by: Oxycodone HCl (Roxicodone) 5 mg PO Q4HP PRN PRN Reason: PAIN LEVEL 3-6 Last Admin: 12/22/18 11:53 Dose: 5 mg Documented by: Ra (Senokot) 2 tab PO HS [facility] Last Admin: 12/21/18 21:09 Dose: 2 tab Documented by: Sodium Chloride (Saline Flush) 10 ml IV Q8 [facility] Last Admin: 12/22/18 08:00 Dose: Not Given Documented by: Vancomycin HCl (Vancomycin Per Pharmacy) 1 order IV UD [facility] Medical - PN: A/P - Time Spent With Patient Total time spent is greater than 50% in coordination of care (as documented) at patient's floor/unit and/or counseling patient: - Narrative A/P Narrative: A/P Cellulitis and Abscess -Surgery consult, IV antibiotics hold eliquis for now, plan for surgery in AM continue with pain management Flank pain pt reported hematuria likely passed stone no e/o stone on CT will send ua DVT -due to picc line, in september last year, on eliquis for now(held for sx) Asthma no wheezing noted, resume home meds duonebs for q6hrs for now Morbid obesty outpatient follow up HTN hold losartan for now, given plan for surgery monitor bp, anxiety resume home meds DVT on eliquis held for now, resume post op Full code Regular diet for now NPO [facility] - PN: Qual - VTE Deep Vein Thrombosis/Pulmonary Embolism Present on Admission: No
[2018-12-22] MEDS: MUPIROCIN OINT 2% 22GM TOPICAL SCH ×3 (13:05→20:29)
[2018-12-22] MEDS ORDERED: 0.9 % SODIUM CHLORIDE 10 ML SYRINGE IV PRN (15:27)
--- NOTE | 2018-12-22 16:38 | General Surgery Consult Note ---
History of Present Illness Patient information: Note initiated : 12/22/18 at 4:33 pm Service Date, if different from initiated Date: [] Patient: Yulia Loyd a 38 y/o F admitted on 12/21/18 for right armpit abscess. Chief Complaint: [] Consult date: 12/22/18 Requesting physician: Carleen Goldstein (Wound Care Follow Up) History of present illness: I saw this patient along with Kiki RN, inpatient wound care nurse and Melissa RN, taking care of this patient on [facility] floor. Patient was admitted via emergency last night with the worsening wound infection and spreading inflammatory changes cellulitis right axilla around the site of I and D of abscess a few days earlier. This is a recurrent episode. Patient is morbidly obese, has multiple comorbid medical problems, drug allergies and a habit of saving her armpits regularly. Currently, this wound is situated along the inferior axillary line and there are extensive inflammatory changes in the subcutaneous tissues around the important axillary contents. General surgery consultation was obtained from Dr. Van Cruz. Patient is scheduled to undergo right axillary exploration by Dr. Cruz tomorrow. Will follow this patient and be available to take care of her wound related needs as appropriate. Medications and Allergies Home Medications Medication Instructions Recorded Confirmed Type ferrous sulfate 325 mg (65 mg See Dose Instructions PO QDAY tab 05/10/15 12/21/18 History iron) tablet epinephrine 0.3 mg/0.3 mL 0.3 mg IM ONCE PRN #1 each 07/14/15 12/21/18 Rx injection, auto-injector Albuterol Sulfate [Proair Hfa] 8.5 gm IH PRN PRN 01/09/17 12/21/18 History Montelukast [Singular] 10 mg PO QDAY 01/09/17 12/21/18 History albuterol sulfate HFA 90 See Rx Instructions INHALATION Q4H 10/10/17 12/21/18 History mcg/actuation aerosol inhaler PRN g umeclidinium 62.5 mcg/actuation 1 inh INHALATION Q24H 10/10/17 12/21/18 History blister powder for inhalation albuterol sulfate 2.5 mg/3 mL 2.5 mg INHALATION .Q4-5H PRN ml 02/18/18 12/21/18 History (0.083 %) solution for nebulization budesonide-formoterol HFA 160 1 puff INHALATION BID g 02/18/18 12/21/18 History mcg-4.5 mcg/actuation aerosol inhaler escitalopram 10 mg tablet 10 mg PO QDAY 02/18/18 12/21/18 History triamcinolone acetonide 0.1 % 1 applic TOPICAL TIDP PRN g 02/18/18 12/21/18 History topical cream Apixaban [Eliquis] 5 mg PO BID 12/07/18 12/21/18 History losartan 100 mg tablet 100 mg PO QAM tab 12/16/18 12/21/18 History omeprazole 40 mg capsule,delayed 40 mg PO QAM cap 12/16/18 12/21/18 History release zolpidem 10 mg PO QHS PRN 12/16/18 12/21/18 History Ascorbic Acid [Vitamin C with Chrissy 500 mg PO HS 12/18/18 12/21/18 History Hips] Fluticasone/Vilanterol [Breo 1 puff INH DAILY 12/20/18 12/21/18 History Ellipta 200-25 Mcg INH] Hydrocodone/APAP 7.5/325Mg [[place] 1 tab PO Q4-6HP PRN 12/20/18 12/21/18 History 7.5-325Mg] Allergies Allergy/AdvReac Type Severity Reaction Status Date / Time Amoxicillin Allergy Severe Anaphylaxis Verified 12/21/18 15:17 cephalexin Allergy Severe Swelling Verified 12/21/18 19:02 of Lip/Tongue/Throat Cephalosporins Allergy Severe Throat Verified 12/21/18 19:02 swelling doxycycline Allergy Severe Vomiting Verified 12/21/18 15:17 peanut Allergy Severe Anaphylaxis Verified 12/21/18 15:17 Penicillins Allergy Severe Anaphylaxis Verified 12/21/18 15:17 promethazine Allergy Severe Difficulty Verified 12/21/18 15:17 Breathing Sulfa (Sulfonamide Allergy Severe Hives Verified 12/21/18 15:17 Antibiotics) walnut Allergy Severe Anaphylaxis Verified 12/21/18 15:17 adhesive tape Allergy Intermediate Rash Verified 12/21/18 15:17 codeine Allergy Intermediate Hives Verified 12/21/18 15:17 [From Tylenol-Codeine #3] methocarbamol Allergy Mild Shakiness Verified 12/21/18 15:17 murillo pepper Allergy Mild Sores in Uncoded 12/20/18 21:15 mouth and throat Exam Temp Pulse Resp BP Pulse Ox 97.4 F 80 24 H 128/68 92 12/22/18 16:00 12/22/18 16:00 12/22/18 16:00 12/22/18 16:00 12/22/18 16:00 - General physical appearance well developed, well nourished, moderate distress, obese - Eyes PERRL, normal ocular movement - ENT normal pinna, normal nares, normal mucosa, no hearing loss, no congestion - Head Head exam IM: Present: atraumatic, normal inspection, normocephalic - Neck no masses, no bruits, trachea midline, no venous distension - Cardiovascular Cardiovascular exam IM: Present: normal rate and rhythm - Respiratory normal expansion, normal respiratory effort, clear to auscultation - Abdomen Abdomen: Present: soft, non tender, bowel sounds - Integumentary Present: other (redness, tenderness, erythema and cellulitis right axilla extending onto the infra-axillary area and inner aspect of right arm. There are no neurovascular deficits.) - Neurologic Present: other (nonlocalizing unremarkable neurologic examination.) - Musculoskeletal Present: other (stiffness of right shoulder and decreased range of movements due to pain and inflammation in the axillary area.) - Psychiatric Present: oriented to time, oriented to person, oriented to place, speech is normal Results - Labs 12/21/18 16:25 12/21/18 16:25 Abnormal lab results 12/21/18 12/21/18 12/21/18 Range/Units 16:15 16:25 16:25 Hgb 11.8 L (12.0-15.0) g/dL Plt Count 543 H (140-440) K/mcL BUN 4 L (6-20) mg/dl Ur Leukocyte Esterase 75 A (NEG) /uL Diabetes panel 12/21/18 Range/Units 16:25 Sodium 139 (133-145) mmol/L Potassium 3.3 (3.3-5.1) mmol/L Chloride 103 (96-108) mmol/L Carbon Dioxide 27 (22-30) mmol/L BUN 4 L (6-20) mg/dl Creatinine 0.7 (0.6-1.1) mg/dl Glucose 96 (70-105) mg/dL Calcium 9.0 (8.6-10.4) mg/dl AST 17 (0-37) U/l ALT 21 (0-40) U/l Alkaline Phosphatase 59 (39-117) U/L Total Protein 6.8 (5.9-8.4) gm/dL Albumin 3.5 (3.2-5.2) gm/dL Calcium panel 12/21/18 Range/Units 16:25 Calcium 9.0 (8.6-10.4) mg/dl Albumin 3.5 (3.2-5.2) gm/dL Pituitary panel 12/21/18 Range/Units 16:25 Sodium 139 (133-145) mmol/L Potassium 3.3 (3.3-5.1) mmol/L Chloride 103 (96-108) mmol/L Carbon Dioxide 27 (22-30) mmol/L BUN 4 L (6-20) mg/dl Creatinine 0.7 (0.6-1.1) mg/dl Glucose 96 (70-105) mg/dL Calcium 9.0 (8.6-10.4) mg/dl Adrenal panel 12/21/18 Range/Units 16:25 Sodium 139 (133-145) mmol/L Potassium 3.3 (3.3-5.1) mmol/L Chloride 103 (96-108) mmol/L Carbon Dioxide 27 (22-30) mmol/L BUN 4 L (6-20) mg/dl Creatinine 0.7 (0.6-1.1) mg/dl Glucose 96 (70-105) mg/dL Calcium 9.0 (8.6-10.4) mg/dl Total Bilirubin 0.2 (0.0-1.0) mg/dL AST 17 (0-37) U/l ALT 21 (0-40) U/l Alkaline Phosphatase 59 (39-117) U/L Total Protein 6.8 (5.9-8.4) gm/dL Albumin 3.5 (3.2-5.2) gm/dL All other labs normal. Assessment and Plan (1) Cellulitis Status: Acute Priority: High Qualifiers: Site of cellulitis: extremity Site of cellulitis of extremity: axilla Laterality: right Qualified Code(s): L03.111 - Cellulitis of right axilla (2) Abscess of skin or subcutaneous tissue Status: Acute Priority: High Qualifiers: Site of cutaneous abscess of extremity: axilla Laterality: right (3) Encounter for wound re-check Status: Acute Priority: High Comment: I reviewed Dr. Cruz's notes. Patient has axillary lymphadenitis probably hidradenitis. Needs exploration of right axilla to treat the source of sepsis.
[2018-12-22 17:01] LABS: Appearance,Urine CLEAR; Bacteria,Urine 0 /hpf (0); Bilirubin,Urine NEG (NEG); Color,Urine YELLOW; Glucose,Urine (UA) NEGATIVE (NEG); Leukocyte Esterase,Urine NEG /uL (NEG); Mucus,Urine MANY /hpf (0); Protein,Urine NEG (NEG); Urine Blood NEG mg/dL (<0.03); Urine RBC 1 /hpf (0-1); Urine Squamous Epithelial Cell 4 /hpf (0-4); Urine WBC 2 /hpf (0-4); Urobilinogen,Urine NEG (NEG)
--- NOTE | 2018-12-22 17:02 | XRay Report ---
HISTORY: PICC line insertion FINDINGS: A PICC line has been inserted through the right arm. The tip is in the region of the upper portion of the right atrium. There is no widening of the mediastinum, pneumothorax or pleural effusion. The lungs are clear. The heart appears mildly enlarged but is magnified by portable technique. IMPRESSION: No complication following insertion of a right-sided PICC line. The tip of the catheter is in the upper portion of the right atrium Interpreted and Authenticated by: Juancarlos Munoz 12/22/18
[2018-12-22] MEDS: SENNOSIDES 1 TABLET PO SCH (20:26)
[2018-12-23] MEDS: IPRATROPIUM/ALBUTEROL 3 ML AMPUL.NEB NEB SCH ×2 (01:11→07:00)
[2018-12-23] MEDS: 0.45 % SODIUM CHLORIDE 1,000 ML IV SCH ×2 (08:10→15:17)
[2018-12-23] MEDS: 0.9 % SODIUM CHLORIDE 10 ML SYRINGE IV SCH ×2 (10:02→21:41)
[2018-12-23] MEDS: MUPIROCIN OINT 2% 22GM TOPICAL SCH ×3 (10:02→21:48)
[2018-12-23] MEDS: VANCOMYCIN 1,500 MG in 0.9 % SODIUM CHLORIDE 500 ML IV SCH ×2 (10:02→21:42)
[2018-12-23] MEDS ORDERED: KETAMINE 100 MG/ML ML IV ONE (13:10)
[2018-12-23] MEDS ORDERED: ONDANSETRON 4 MG/2 ML VIAL IV ONE (13:10)
[2018-12-23] MEDS ORDERED: DEXAMETHASONE 10 MG/ML VIAL IV ONE (13:10)
[2018-12-23] MEDS ORDERED: fentaNYL 100 MCG/2 ML VIAL IV ONE (13:10)
[2018-12-23] MEDS ORDERED: PROPOFOL 200 MG/20 ML VIAL IV ONE (13:10)
[2018-12-23] MEDS ORDERED: LIDOCAINE HCL/PF 100 MG/5 ML SYRINGE IV ONE (13:10)
[2018-12-23] MEDS ORDERED: MIDAZOLAM 2 MG/2 ML VIAL IV ONE (13:10)
[2018-12-23] MEDS ORDERED: MEPERIDINE 25 MG/ML SYRINGE IV PRN ×2 (13:22→14:41)
[2018-12-23] MEDS ORDERED: IPRATROPIUM/ALBUTEROL 3 ML AMPUL.NEB NEB PRN ×2 (13:22→14:41)
[2018-12-23] MEDS ORDERED: BENZOCAINE/MENTHOL 1 LOZENGE PO PRN ×2 (13:22→14:41)
[2018-12-23] MEDS ORDERED: LACTATED RINGERS 250 ML IV PRN ×2 (13:22→14:41)
[2018-12-23] MEDS ORDERED: NALOXONE HCL 0.4 MG/ML VIAL IV PRN ×3 (13:22→14:41)
[2018-12-23] MEDS ORDERED: ONDANSETRON 4 MG/2 ML VIAL IV PRN ×3 (13:22→14:41)
[2018-12-23] MEDS ORDERED: FLUMAZENIL 0.1 MG/ML ML IV PRN ×2 (13:22→14:41)
[2018-12-23] MEDS ORDERED: diphenhydrAMINE 50 MG/ML VIAL IV PRN ×2 (13:22→14:41)
[2018-12-23] MEDS ORDERED: ACETAMINOPHEN 1,000 MG/100 ML BOTTLE IV ONE (13:22)
[2018-12-23] MEDS ORDERED: PROMETHAZINE 25 MG/ML VIAL IV PRN ×2 (13:22→14:41)
[2018-12-23] MEDS ORDERED: LACTATED RINGERS 1,000 ML IV SCH ×2 (13:30→14:41)
--- NOTE | 2018-12-23 13:36 | Brief Operative Note ---
Date of procedure: 12/23/18 Pre-op diagnosis: axillary abscess and lymphadenopathy ,right Post-op diagnosis: other (axillary abscess and lymphadenopathy,right) Procedure: excisional debridement and lymphadenectomy ,right axilla Grafts/Implants: No Anesthesia: GLMA Findings: thick inflammatory ,fluctuant mass of right axilla with necrotic center Complications: none Surgeon: Houston Cruz Specimens Removed/Pathology: other (tissue fronm right axilla) Condition: stable Disposition: other (recovered in O.R. DUE TO MDRO STATUS .)
[2018-12-23] MEDS: fentaNYL 100 MCG/2 ML VIAL IV PRN ×5 (13:48→14:11)
[2018-12-23] MEDS ORDERED: KETOROLAC 15 MG/ML VIAL IV PRN (14:41)
[2018-12-23] MEDS ORDERED: 0.9 % SODIUM CHLORIDE 10 ML SYRINGE IV PRN (14:41)
[2018-12-23] MEDS ORDERED: fentaNYL 100 MCG/2 ML VIAL IV PRN (14:41)
[2018-12-23] MEDS ORDERED: VANCOMYCIN PER PHARMACY IV SCH (14:41)
[2018-12-23] MEDS ORDERED: ACETAMINOPHEN 650 MG/65 ML BOTTLE IV PRN (14:41)
--- NOTE | 2018-12-23 17:13 | Internal Med Progress Note ---
Medical - PN: Subj Patient information: Note initiated : 12/23/18 at 5:11 pm Service Date, if different from initiated Date: [] Patient: Yulia Loyd a 38 y/o F admitted on 12/21/18 for right armpit abscess. Chief Complaint: Follow-up cellulitis and abscess Interval history: Ms. Loyd is a 38 year old F with morbid obesity, htn, asthma presents to the er from the wound care clinic for evaluation of wound in the right axillary region. The patient notes that this started 2 weeks ago started as a small pustule which spread gradually. She was here I believe last week and was evaluated for same, had an incision and drainage done and was asked to follow-up in the wound care clinic. She was also started on vancomycin as an outpatient. She was seen in the wound care clinic today and was deemed that the infection was not getting better but indeed spreading. The patient has had difficulty in moving her arm because of the pain. She therefore presented back to the emergency room. The patient admits to having some fever and chills in the past which is not that at this time, she admits to having some nausea, and severe pain in the right axilla. Pain is worse with movement better with pain meds. She has been taking vancomycin for same and she is allergic to penicillin group of antibiotics. In the emergency room on presentation patient was afebrile, hemodynamically stable. Labs reviewed unremarkable. Patient had a huge area of induration in the right axilla, 8 x 8 cm in diameter with surrounding erythema warm to touch and very tender. I was able to express some pus on lightly expressing the indurated region. Ultrasound of the region was done, the tech noted that there is no evidence of obvious abscess or pocket lesions, clinically however there seems to be an abscess there. Patient will be admitted to the hospital for further management general surgery will be consulted 2/ Pt seen examine, complained about flank pain and some blood in urine ct abdomen pelvis is neg right axilla better today from erythema prospective, but still quite tender surgery consult awaited, continue antibiotics 12/23 Patient seen and examined postoperatively. Had large area of inflammatory tissue with necrotic center with superficial nodes dissected by Dr. Cruz. Lymph nodes removed were superficial, not at risk for lymphedema Patient is painful postoperative, no dyspnea, no chest pain, no nausea or vomiting - Constitutional Vitals: Vital Signs Temp Pulse Resp BP Pulse Ox 97.5 F 89 18 140/99 97 12/23/18 15:13 12/23/18 15:13 12/23/18 15:13 12/23/18 15:13 12/23/18 15:13 Period Temp Pulse Resp BP Sys/Fernandez Pulse Ox Last 24 Hr 97.0 F-98.4 F 70-96 12-20 107-180/50-99 90-99 Intake and Output 12/23/18 12/23/18 12/23/18 05:59 13:59 21:59 Intake Total 740 1000 100 Output Total 1100 2200 Balance -360 1000 -2100 Intake & Output: Intake & Output 12/23/18 12/23/18 12/23/18 05:59 13:59 21:59 Intake Total 740 1000 100 Output Total 1100 2200 Balance -360 1000 -2100 Intake: IV 500 1000 100 Sodium Chloride 0.45% 1,000 ml 1000 @ 84 mls/hr IV .[id number] [facility] Rx# :[id number] Vancomycin 1,500 mg In Sodium 500 Chloride 0.9% 500 ml @ 333.3 mls/hr IV Q12H [facility] Rx#: [id number] Oral 240 Output: Void Amount 1100 2200 Other: Urine Appearance Clear Clear Urine Color Pale Pale Urine Odor Normal Normal # Voids 1 Exam: General: Somewhat uncomfortable, laying in bed Chest: Clear Cardiovascular: Regular, trace peripheral edema Abdomen: Obese, soft Skin: Right axilla with surgical dressing in place Neuro: Alert, oriented, nonfocal Medical - PN: Obj Da - Labs CBC & Chem 7: 12/21/18 16:25 12/21/18 16:25 Labs: Abnormal Lab Results 12/22/18 12/21/18 12/21/18 16:34 16:25 16:25 Hgb 11.8 L Plt Count 543 H BUN 4 L Ur Leukocyte Esterase Urine Mucus Many A 12/21/18 16:15 Hgb Plt Count BUN Ur Leukocyte Esterase 75 A Urine Mucus Meds: Medications Albuterol Sulfate (Ventolin) 2.5 mg NEB Q2HP PRN PRN Reason: Shortness Of Breath Heparin Sodium (Porcine) (Heparin Flush) 2 ml IV Q12 [facility] Acetaminophen (Ofirmev) 650 mg in 65 mls @ 130 mls/hr IV Q6HP PRN PRN Reason: PAIN/FEVER > 101 Sodium Chloride (Sodium Chloride 0.45%) 1,000 mls @ 84 mls/hr IV .[id number] [facility] Last Admin: 12/23/18 15:17 Dose: 84 mls/hr Documented by: Vancomycin HCl 1,500 mg/ (Sodium Chloride) 500 mls @ 333.3 mls/hr IV Q12H [facility] Ketorolac Tromethamine (Toradol) 15 mg IV Q6HP PRN PRN Reason: Pain Stop: 12/23/18 18:35 Last Admin: 12/23/18 16:15 Dose: 15 mg Documented by: Morphine Sulfate (Morphine) 2 mg IV Q2HP PRN PRN Reason: PAIN LEVEL > 6 Last Admin: 12/23/18 15:18 Dose: 2 mg Documented by: Mupirocin (Bactroban Oint 2%) 1 dose TOPICAL TID [facility] Last Admin: 12/23/18 14:53 Dose: Not Given Documented by: Naloxone HCl (Narcan) 0.1 mg IV Q2MIN PRN PRN Reason: Opiate Reversal Ondansetron HCl (Zofran) 4 mg IV Q6HP PRN PRN Reason: Nausea And Vomiting Oxycodone HCl (Roxicodone) 5 mg PO Q4HP PRN PRN Reason: PAIN LEVEL 3-6 Senna (Senokot) 2 tab PO HS [facility] Sodium Chloride (Saline Flush) 10 ml IV UD PRN PRN Reason: FLUSH Sodium Chloride (Saline Flush) 10 ml IV Q12 [facility] Vancomycin HCl (Vancomycin Per Pharmacy) 1 order IV UD [facility] - Imaging and cardiology Chest x-ray Status: image reviewed by me Additional comments: IMPRESSION: No complication following insertion of a right-sided PICC line. The tip of the catheter is in the upper portion of the right atrium Medical - PN: A/P (1) Cutaneous abscess of right axilla Status: Acute Current Visit: Yes - Narrative A/P Narrative: Cellulitis and Abscess of right axilla -Surgery consult, status post excision of inflammatory mass and superficial lymph nodes -Continue antibiotics, vancomycin (MRSA on outpatient cultures) -hold eliquis -pain management Flank pain pt reported hematuria likely passed stone no e/o stone on CT DVT -due to PICC line in September last year, on Eliquis (now held for surgery) Asthma no wheezing noted, resume home meds DC DuoNeb, continue when necessary albuterol Morbid obesty outpatient follow up HTN Holding losartan given surgical procedure If blood pressures are good, resume tomorrow Anxiety resume home meds DVT on Eliquis held for now, resume post op Full code Regular diet Medical - PN: Qual - VTE Deep Vein Thrombosis/Pulmonary Embolism Present on Admission: No
[2018-12-23] MEDS: oxyCODONE HCL 5 MG TABLET PO PRN ×2 (19:29→23:44)
[2018-12-23] MEDS: SENNOSIDES 1 TABLET PO SCH (21:40)
[2018-12-23] MEDS ORDERED: FLUCONAZOLE 100 MG TABLET PO ONE (21:52)
[2018-12-23] MEDS: NYSTATIN POWDER BOTTLE 15GM TOPICAL PRN (22:48)
[2018-12-24] MEDS: ALBUTEROL SULFATE 2.5 MG/3 ML NEBULIZER NEB PRN ×2 (02:11→12:53)
[2018-12-24] MEDS: 0.45 % SODIUM CHLORIDE 1,000 ML IV SCH ×2 (03:18→17:14)
[2018-12-24] MEDS: oxyCODONE HCL 5 MG TABLET PO PRN ×5 (07:23→23:56)
[2018-12-24] MEDS: VANCOMYCIN 1,500 MG in 0.9 % SODIUM CHLORIDE 500 ML IV SCH ×2 (10:18→21:19)
[2018-12-24] MEDS: 0.9 % SODIUM CHLORIDE 10 ML SYRINGE IV SCH ×2 (10:19→21:21)
[2018-12-24] MEDS: APIXABAN 5 MG TABLET PO SCH ×2 (10:19→21:19)
[2018-12-24] MEDS: MUPIROCIN OINT 2% 22GM TOPICAL SCH (10:38)
[2018-12-24] MEDS ORDERED: MAGNESIUM HYDROXIDE 30 ML ORAL.SUSP PO PRN (10:55)
[2018-12-24] MEDS ORDERED: FLEETS ADULT ENEMA PR PRN (10:55)
[2018-12-24] MEDS ORDERED: BISACODYL 10 MG SUPP.RECT PR PRN (10:55)
--- NOTE | 2018-12-24 14:31 | Surgical Pathology Report ---
HISTOLOGY SPECIMEN MICROSCOPIC DIAGNOSIS SOFT TISSUE, RIGHT AXILLARY ABSCESS, EXCISION: -- MATURE ADIPOSE TISSUE WITH FAT NECROSIS, ACUTE/CHRONIC INFLAMMATION AND FIBROSIS. (RLF:sln) PROCEDURAL IMPRESSION Right axillary/armpit abscess. GROSS DESCRIPTION Received in formalin labeled right axillary tissue, are multiple pink to yellow-colmenares fatty tissue fragments, in aggregate 8 x 3.5 by up to 1.7 cm. Sectioning reveals yellow-colmenares fatty tissue. [employer] sections submitted in two cassettes. (STS:sln) Electronically Signed by: Lara Kumari M.D.
--- NOTE | 2018-12-24 15:26 | General Surgery Progress Note ---
Subjective Patient reports: feels better, pain is less, afebrile Narrative: Note initiated : 12/24/18 at 3:24 pm Service Date, if different from initiated Date: [] Patient: Yulia Loyd 38 y/o F admitted on 12/21/18 for right armpit abscess. Chief Complaint: [the patient is doing well. Her pain is better controlled. She has had a wound VAC placed and can probably be discharged home tomorrow after we received her home wound VAC system. She is to be followed up by wound care team.] Objective Temp Pulse Resp BP Pulse Ox 98.2 F 97 H 16 151/81 94 12/24/18 12:11 12/24/18 12:53 12/24/18 12:53 12/24/18 12:11 12/24/18 12:11 - Additional Data Intake & Output - Last 24 hours: Intake & Output 12/22/18 12/23/18 12/24/18 12/25/18 05:59 05:59 05:59 05:59 Intake Total 1280 2220 2800 600 Output Total 400 1400 3825 2100 Balance 880 820 -1025 -1500 Weight 308 lb 8 oz 312 lb 313 lb - Labs 12/21/18 16:25 12/21/18 16:25 Assessment and Plan (1) Axillary lymphadenopathy Status: Chronic Current Visit: No (2) Cutaneous abscess of right axilla Status: Acute Current Visit: Yes (3) Asthma with status asthmaticus in adult Status: Acute Current Visit: No (4) Acute exacerbation of chronic obstructive airways disease Status: Chronic Current Visit: No (5) GERD (gastroesophageal reflux disease) Status: Chronic Current Visit: No (6) Osteoarthritis of knees, bilateral Status: Chronic Current Visit: No - Time Spent With Patient Total time spent is greater than 50% in coordination of care (as documented) at patient's floor/unit and/or counseling patient:
[2018-12-24] MEDS ORDERED: POLYETHYLENE GLYCOL 3350 17 GM PACKET PO PRN (16:58)
--- NOTE | 2018-12-24 18:32 | General Surgery Progress Note ---
Subjective Patient reports: other Narrative: Note initiated : 12/24/18 at 6:29 pm Service Date, if different from initiated Date: [] Patient: Yulia Loyd 38 y/o F admitted on 12/21/18 for right armpit abscess. Chief Complaint: [] I saw this patient along with Kiki RN, wound care nurse. Patient's progress was reviewed and the right axillary wound was examined. Objective Temp Pulse Resp BP Pulse Ox 97.8 F 89 20 154/98 95 12/24/18 16:00 12/24/18 16:00 12/24/18 16:00 12/24/18 16:00 12/24/18 16:00 Postoperative day 1. Vital signs are stable. No changes in general physical examination. Local examination: Significant improvement inflammation changes right infra- axillary area. Open wound along the skin crease of inferior axillary hairline. Wound base is granulating well. No residual pockets, drainage, circulation. Tenderness is improved. - Additional Data Intake & Output - Last 24 hours: Intake & Output 12/22/18 12/23/18 12/24/18 12/25/18 05:59 05:59 05:59 05:59 Intake Total 1280 2220 2800 2600 Output Total 400 1400 3825 2400 Balance 880 820 -1025 200 Weight 308 lb 8 oz 312 lb 313 lb - Labs 12/21/18 16:25 12/21/18 16:25 Assessment and Plan (1) Cellulitis Status: Acute Current Visit: Yes (2) Abscess of skin or subcutaneous tissue Status: Acute Current Visit: No (3) Encounter for wound re-check Problem details: I reviewed Dr. Cruz's notes. Patient has axillary lymphadenitis probably hidradenitis. Needs exploration of right axilla to treat the source of sepsis. Status: Acute Current Visit: No - Narrative A/P Narrative: Assessment: Satisfactory postoperative progress. We will start wound VAC for expediting wound healing and closure. Plan: Wound VAC placement. Followed by the wound clinic after discharge for ongoing continuation of treatment. - Time Spent With Patient Total time spent is greater than 50% in coordination of care (as documented) at patient's floor/unit and/or counseling patient:
--- NOTE | 2018-12-24 20:10 | Internal Med Progress Note ---
Medical - PN: Subj Patient information: Note initiated : 12/24/18 at 8:06 pm Service Date, if different from initiated Date: [] Patient: Yulia Loyd a 38 y/o F admitted on 12/21/18 for right armpit abscess. Chief Complaint: Follow-up lymphadenitis Interval history: Ms. Loyd is a 38 year old F with morbid obesity, htn, asthma presents to the er from the wound care clinic for evaluation of wound in the right axillary region. The patient notes that this started 2 weeks ago started as a small pustule which spread gradually. She was here I believe last week and was evaluated for same, had an incision and drainage done and was asked to follow-up in the wound care clinic. She was also started on vancomycin as an outpatient. She was seen in the wound care clinic today and was deemed that the infection was not getting better but indeed spreading. The patient has had difficulty in moving her arm because of the pain. She therefore presented back to the emergency room. The patient admits to having some fever and chills in the past which is not that at this time, she admits to having some nausea, and severe pain in the right axilla. Pain is worse with movement better with pain meds. She has been taking vancomycin for same and she is allergic to penicillin group of antibiotics. In the emergency room on presentation patient was afebrile, hemodynamically stable. Labs reviewed unremarkable. Patient had a huge area of induration in the right axilla, 8 x 8 cm in diameter with surrounding erythema warm to touch and very tender. I was able to express some pus on lightly expressing the indurated region. Ultrasound of the region was done, the tech noted that there is no evidence of obvious abscess or pocket lesions, clinically however there seems to be an abscess there. Patient will be admitted to the hospital for further management general surgery will be consulted 2/ Pt seen examine, complained about flank pain and some blood in urine ct abdomen pelvis is neg right axilla better today from erythema prospective, but still quite tender surgery consult awaited, continue antibiotics 12/23 Patient seen and examined postoperatively. Had large area of inflammatory tissue with necrotic center with superficial nodes dissected by Dr. Cruz. Lymph nodes removed were superficial, not at risk for lymphedema Patient is painful postoperative, no dyspnea, no chest pain, no nausea or vomit ing 2/7 Feels much improved today after surgery yesterday. Wound VAC in place. Receive bowel care with good results. In good spirits. Hasn't felt this good in several weeks. Tolerating pain, currently being controlled. Had been having some sharp lower anterior chest pain with deep inspiration. - Constitutional Vitals: Vital Signs Temp Pulse Resp BP Pulse Ox 97.6 F 80 18 140/85 96 12/24/18 20:00 12/24/18 20:00 12/24/18 20:00 12/24/18 20:00 12/24/18 20:00 Period Temp Pulse Resp BP Sys/Fernandez Pulse Ox Last 24 Hr 97.6 F-98.4 F 78-104 16-22 110-154/66-98 90-96 Intake and Output 12/24/18 12/24/18 12/24/18 05:59 13:59 21:59 Intake Total 1700 1100 1500 Output Total 1625 2100 550 Balance 75 -1000 950 Intake & Output: Intake & Output 12/24/18 12/24/18 12/24/18 05:59 13:59 21:59 Intake Total 1700 1100 1500 Output Total 1625 2100 550 Balance 75 -1000 950 Intake: IV 7942 590 3115 Sodium Chloride 0.45% 1,000 ml 1000 1000 @ 84 mls/hr IV .[id number] [facility] Rx# :[id number] Vancomycin 1,500 mg In Sodium 500 500 Chloride 0.9% 500 ml @ 333.3 mls/hr IV Q12H [facility] Rx#: [id number] Oral 200 600 500 Output: Void Amount 1625 2100 550 Other: Meal Lunch Percent of Meal Consumed 100% Feeding Ability Independent Urine Appearance Clear Urine Color Bright Yellow Pale # Voids 2 1 # Bowel Movements 1 Exam: General: In bed in no acute distress Chest: Clear, liver Cardio vascular: Regular, trace edema Abdomen: Soft Skin: Right axillary wound with wound VAC in place, no surrounding erythema Neuro: Alert, oriented 3, nonfocal Medical - PN: Obj Da - Labs CBC & Chem 7: 12/21/18 16:25 12/21/18 16:25 Labs: Abnormal Lab Results 12/22/18 16:34 Urine Mucus Many A Microbiology 12/21/18 16:25 Blood Culture - Preliminary Blood 12/21/18 16:30 Blood Culture - Preliminary Blood Meds: Medications Albuterol Sulfate (Ventolin) 2.5 mg NEB Q2HP PRN PRN Reason: Shortness Of Breath Last Admin: 12/24/18 12:53 Dose: 2.5 mg Documented by: Apixaban (Eliquis) 5 mg PO BID [facility] Last Admin: 12/24/18 10:19 Dose: 5 mg Documented by: Bisacodyl (Dulcolax) 10 mg PA Q2-3DAYS PRN PRN Reason: Constipation Docusate Sodium (Colace) 100 mg PO BID [facility] Heparin Sodium (Porcine) (Heparin Flush) 2 ml IV Q12 [facility] Last Admin: 12/24/18 10:19 Dose: Not Given Documented by: Acetaminophen (Ofirmev) 650 mg in 65 mls @ 130 mls/hr IV Q6HP PRN PRN Reason: PAIN/FEVER > 101 Sodium Chloride (Sodium Chloride 0.45%) 1,000 mls @ 84 mls/hr IV .[id number] [facility] Last Admin: 12/24/18 17:14 Dose: 84 mls/hr Documented by: Vancomycin HCl 1,500 mg/ (Sodium Chloride) 500 mls @ 333.3 mls/hr IV Q12H [facility] Last Infusion: 12/24/18 12:15 Dose: Infused Documented by: Magnesium Hydroxide (Milk Of Magnesia) 30 ml PO DAILYP PRN PRN Reason: Constipation Morphine Sulfate (Morphine) 2 mg IV Q2HP PRN PRN Reason: PAIN LEVEL > 6 Last Admin: 12/24/18 18:36 Dose: 2 mg Documented by: Naloxone HCl (Narcan) 0.1 mg IV Q2MIN PRN PRN Reason: Opiate Reversal Nystatin (Nystatin) 1 dose TOPICAL TIDP PRN PRN Reason: Skin Irritation Last Admin: 12/23/18 22:48 Dose: 1 dose Documented by: Ondansetron HCl (Zofran) 4 mg IV Q6HP PRN PRN Reason: Nausea And Vomiting Oxycodone HCl (Roxicodone) 5 mg PO Q4HP PRN PRN Reason: PAIN LEVEL 3-6 Last Admin: 12/24/18 19:52 Dose: 5 mg Documented by: Polyethylene Glycol (Miralax) 17 gm PO DAILYP PRN PRN Reason: Constipation Senna (Senokot) 2 tab PO [facility] Last Admin: 12/23/18 21:40 Dose: 2 tab Documented by: Sodium Biphosphate/Sodium Phosphate (Fleets Adult) 1 dose PA Q3-4DAYS PRN PRN Reason: Constipation Sodium Chloride (Saline Flush) 10 ml IV UD PRN PRN Reason: FLUSH Sodium Chloride (Saline Flush) 10 ml IV Q12 [facility] Last Admin: 12/24/18 10:19 Dose: Not Given Documented by: Vancomycin HCl (Vancomycin Per Pharmacy) 1 order IV UD [facility] Medical - PN: A/P (1) Cutaneous abscess of right axilla Status: Acute Current Visit: Yes - Narrative A/P Narrative: Cellulitis and Abscess of right axilla -Surgery consult, postop day #1 status post excision of inflammatory mass and superficial lymph nodes -Continue antibiotics, vancomycin (MRSA on outpatient cultures), trough goal 1520 -Resume Eliquis -pain management Flank pain pt reported hematuria likely passed stone no e/o stone on CT DVT/sharp lower chest pain -DVT due to left PICC line in September last year, Eliquis resumed -Unclear etiology of lower chest pain, patient concerned about thromboembolism. Will be treated with anticoagulation in any manner, will not pursue further imaging at this point. Discussed with patient who is agreeable with this and not eager for further radiation exposure. The results of any chest imaging would not change immediate therapy. Asthma -no wheezing noted, resume home meds -D/C DuoNeb, continue when necessary albuterol Morbid obesty -outpatient follow up HTN -Resume losartan, blood pressure is trending high. Anxiety -resume home meds DVT on Eliquis, resumed post op Full code Regular diet Medical - PN: Qual - VTE Deep Vein Thrombosis/Pulmonary Embolism Present on Admission: No
[2018-12-24] MEDS ORDERED: diphenhydrAMINE 25 MG CAPSULE PO PRN (20:34)
[2018-12-24] MEDS: DOCUSATE SODIUM 100 MG CAPSULE PO SCH (21:19)
[2018-12-24] MEDS: SENNOSIDES 1 TABLET PO SCH (21:20)
[2018-12-24] MEDS: NYSTATIN POWDER BOTTLE 15GM TOPICAL PRN (22:00)
[2018-12-25] MEDS: oxyCODONE HCL 5 MG TABLET PO PRN ×4 (04:31→14:02)
[2018-12-25] MEDS: 0.45 % SODIUM CHLORIDE 1,000 ML IV SCH ×2 (08:15→11:21)
[2018-12-25] MEDS ORDERED: LOSARTAN 50 MG TABLET PO SCH (09:00)
[2018-12-25] MEDS: VANCOMYCIN 1,500 MG in 0.9 % SODIUM CHLORIDE 500 ML IV SCH (09:10)
[2018-12-25] MEDS: 0.9 % SODIUM CHLORIDE 10 ML SYRINGE IV SCH (09:11)
[2018-12-25] MEDS: DOCUSATE SODIUM 100 MG CAPSULE PO SCH (09:11)
[2018-12-25] MEDS: APIXABAN 5 MG TABLET PO SCH (09:11)
--- NOTE | 2018-12-25 10:28 | General Surgery Progress Note ---
Subjective Patient reports: feels better, tolerating a regular diet, bowel movement, afebrile, other (Carrying out ROM exercises RUE and shoulder .) Narrative: Note initiated : 12/25/18 at 10:26 am Service Date, if different from initiated Date: [] Patient: Yulia Loyd 38 y/o F admitted on 12/21/18 for right armpit abscess. Chief Complaint: [] Objective Temp Pulse Resp BP Pulse Ox 98.6 F 68 20 134/85 96 12/25/18 08:27 12/25/18 08:27 12/25/18 08:27 12/25/18 08:27 12/25/18 08:27 AVSS. NO changes ALICIA. L/E : VAC functioning well. Dressing CDI. Minimal drainage. Resolved inflammation Right infra axillary area. Labs reviewed. - Additional Data Intake & Output - Last 24 hours: Intake & Output 12/23/18 12/24/18 12/25/18 12/26/18 05:59 05:59 05:59 05:59 Intake Total 2220 2800 4080 500 Output Total 1400 3825 2950 Balance 820 -1025 1130 500 Weight 312 lb 313 lb 319 lb - Labs 12/21/18 16:25 12/21/18 16:25 Assessment and Plan (1) Cellulitis Status: Acute Current Visit: Yes (2) Abscess of skin or subcutaneous tissue Status: Acute Current Visit: No (3) Encounter for wound re-check Problem details: I reviewed Dr. Curz's notes. Patient has axillary lymphadenitis probably hidradenitis. Needs exploration of right axilla to treat the source of sepsis. Status: Acute Assessment and plan: Assessment: Satisfactory post operative progress. O K to discharge IF arrangements completed. NEEDS out patient wound VAC. Plan: F/u at the wound clinic in ONE week . Current Visit: No - Time Spent With Patient Total time spent is greater than 50% in coordination of care (as documented) at patient's floor/unit and/or counseling patient:
--- NOTE | 2018-12-25 13:01 | General Surgery Progress Note ---
Subjective Patient reports: feels better, still having pain, pain is less, tolerating a regular diet, afebrile Narrative: Note initiated : 12/25/18 at 12:59 pm Service Date, if different from initiated Date: [] Patient: Yulia Loyd 38 y/o F admitted on 12/21/18 for right armpit abscess. Chief Complaint: [patient is doing well. Her pain is much improved. The axillary wound is clean and erythematous decrease. The wound VAC is in place. Patient is stable for discharge home on oral cephalosporins.] Objective Temp Pulse Resp BP Pulse Ox 98.2 F 83 20 120/72 95 12/25/18 12:00 12/25/18 12:00 12/25/18 12:00 12/25/18 12:00 12/25/18 12:00 - Additional Data Intake & Output - Last 24 hours: Intake & Output 12/23/18 12/24/18 12/25/18 12/26/18 05:59 05:59 05:59 05:59 Intake Total 2220 2800 4080 500 Output Total 1400 3825 2950 900 Balance 820 -1025 1130 -400 Weight 312 lb 313 lb 319 lb - Labs 12/21/18 16:25 12/21/18 16:25 Assessment and Plan (1) Axillary lymphadenopathy Status: Chronic Assessment and plan: Clinically improved. Patient is stable for discharge home. Current Visit: No (2) Cutaneous abscess of right axilla Status: Acute Current Visit: Yes (3) Asthma with status asthmaticus in adult Status: Acute Current Visit: No (4) Acute exacerbation of chronic obstructive airways disease Status: Chronic Current Visit: No (5) GERD (gastroesophageal reflux disease) Status: Chronic Current Visit: No (6) Osteoarthritis of knees, bilateral Status: Chronic Current Visit: No - Time Spent With Patient Total time spent is greater than 50% in coordination of care (as documented) at patient's floor/unit and/or counseling patient:
--- NOTE | 2018-12-25 13:14 | Discharge Summary ---
Medical - DS: Prov Patient information: Note initiated : 12/25/18 at 1:12 pm Service Date, if different from initiated Date: [] Patient: Yulia Loyd 38 y/o F admitted on 12/21/18 for right armpit abscess. Date of admission: 12/21/18 18:53 Discharge date: 12/25/18 Primary care physician: Zeenat De Luna Admitting clinician: Carleen Goldstein Consults: 12/21/18 Consult to Physician [CONS] Stat Comment: Consulting Provider: Carleen Goldstein Reason For Exam: Physician to Consult 12/22/18 09:30 Consult to Physician [CONS] Routine Comment: wound care Consulting Provider: Raymon Tirado Reason For Exam: Physician to Consult 12/22/18 09:56 Consult to Physician [CONS] Routine Comment: Consulting Provider: Houston Cruz Reason For Exam: Physician to Consult Discharging clinician: Yessy Melo Medical - DS: Meds - Discharge Medications Prescriptions: Clindamycin HCl [Cleocin] 300 mg PO TID #15 capsule oxyCODONE HCL [Roxicodone] 5 mg PO Q8H PRN #30 tab PRN Reason: Pain Level 3-6 Active and Home Medications: Home Medications ferrous sulfate 325 mg (65 mg iron) tablet See Dose Instructions PO QDAY tab 05/10/15 [History Confirmed 12/21/18 Last Taken 12/20/18 08:00] epinephrine 0.3 mg/0.3 mL injection, auto-injector 0.3 mg IM ONCE PRN #1 each 07/14/15 [Rx Confirmed 12/21/18 Last Taken Unknown] Albuterol Sulfate [Proair Hfa] 8.5 gm IH PRN PRN 01/09/17 [History Confirmed 12/21/18 Last Taken 12/20/18] Montelukast [Singular] 10 mg PO QDAY 01/09/17 [History Confirmed 12/21/18 Last Taken 12/20/18 08:00] albuterol sulfate HFA 90 mcg/actuation aerosol inhaler See Rx Instructions INHALATION Q4H PRN g 10/10/17 [History Confirmed 12/21/18 Last Taken 12/20/18 08:00] umeclidinium 62.5 mcg/actuation blister powder for inhalation 1 inh INHALATION Q24H 10/10/17 [History Confirmed 12/21/18 Last Taken 12/20/18 08:00] albuterol sulfate 2.5 mg/3 mL (0.083 %) solution for nebulization 2.5 mg INHALATION .Q4-5H PRN ml 02/18/18 [History Confirmed 12/21/18 Last Taken 12/20/18 06:00] budesonide-formoterol HFA 160 mcg-4.5 mcg/actuation aerosol inhaler 1 puff INHALATION BID g 02/18/18 [History Confirmed 12/21/18 Last Taken 12/20/18 08:00] escitalopram 10 mg tablet 10 mg PO QDAY 02/18/18 [History Confirmed 12/21/18 Last Taken 12/20/18 08:00] triamcinolone acetonide 0.1 % topical cream 1 applic TOPICAL TIDP PRN g 02/18/18 [History Confirmed 12/21/18 Last Taken 12/14/18 08:00] Apixaban [Eliquis] 5 mg PO BID 12/07/18 [History Confirmed 12/21/18 Last Taken 12/20/18 21:00] losartan 100 mg tablet 100 mg PO QAM tab 12/16/18 [History Confirmed 12/21/18 Last Taken 12/20/18 08:00] omeprazole 40 mg capsule,delayed release 40 mg PO QAM cap 12/16/18 [History Confirmed 12/21/18 Last Taken 12/20/18 08:00] zolpidem 10 mg PO QHS PRN 12/16/18 [History Confirmed 12/21/18 Last Taken 12/16/18 21:00] Ascorbic Acid [Vitamin C with Chrissy Hips] 500 mg PO HS 12/18/18 [History Confirm ed 12/21/18 Last Taken 12/20/18 21:00] Fluticasone/Vilanterol [Breo Ellipta 200-25 Mcg INH] 1 puff INH DAILY 12/20/18 [History Confirmed 12/21/18 Last Taken 12/20/18 08:00] oxyCODONE HCL [Roxicodone] 5 mg PO Q8H PRN #30 tab 12/25/18 [Rx Last Taken Unknown] Medical - DS: Hosp Hospital course: Presentation: Ms. Loyd is a 38 year old F with morbid obesity, htn, asthma presents to the er from the wound care clinic for evaluation of wound in the right axillary region. The patient notes that this started 2 weeks ago started as a small pustule which spread gradually. She was here I believe last week and was evaluated for same, had an incision and drainage done and was asked to follow-up in the wound care clinic. She was also started on vancomycin as an outpatient. She was seen in the wound care clinic today and was deemed that the infection was not getting better but indeed spreading. The patient has had difficulty in moving her arm because of the pain. She therefore presented back to the emergency room. The patient admits to having some fever and chills in the past which is not that at this time, she admits to having some nausea, and severe pain in the right axilla. Pain is worse with movement better with pain meds. She has been taking vancomycin for same and she is allergic to penicillin group of antibiotics. In the emergency room on presentation patient was afebrile, hemodynamically stable. Labs reviewed unremarkable. Patient had a huge area of induration in the right axilla, 8 x 8 cm in diameter with surrounding erythema warm to touch and very tender. I was able to express some pus on lightly expressing the indurated region. Ultrasound of the region was done, the tech noted that there is no evidence of obvious abscess or pocket lesions, clinically however there seems to be an abscess there. Patient will be admitted to the hospital for further management general surgery will be consulted Course: 12/22 Pt seen examine, complained about flank pain and some blood in urine ct abdomen pelvis is neg right axilla better today from erythema prospective, but still quite tender surgery consult awaited, continue antibiotics 12/23 Patient seen and examined postoperatively. Had large area of inflammatory tissue with necrotic center with superficial nodes dissected by Dr. Cruz. Lymph nodes removed were superficial, not at risk for lymphedema Patient is painful postoperative, no dyspnea, no chest pain, no nausea or vomiting 12/24 Feels much improved today after surgery yesterday. Wound VAC in place. Receive bowel care with good results. In good spirits. Hasn't felt this good in several weeks. Tolerating pain, currently being controlled. Had been having some sharp lower anterior chest pain with deep inspiration. 12/25 Wound care follow-up plan is in place. Continues to feel much better. No sharp lower chest pain. Wound VAC for home as been arranged. We'll continue with 5 further days of antibiotics. 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 - Time Spent with Patient Total time spent providing and/or coordinating discharge services: Greater than 30 minutes Medical - DS: Exam - Constitutional Vitals: Vital Signs Temp Pulse Resp BP Pulse Ox 12/25/18 12:00 98.2 F 83 20 120/72 95 12/25/18 08:27 98.6 F 68 20 134/85 96 12/25/18 07:09 97.3 F 20 118/90 95 12/25/18 04:00 97.7 F 72 22 126/77 96 12/25/18 00:00 98.2 F 72 20 136/81 95 12/24/18 20:00 97.6 F 80 18 140/85 96 12/24/18 16:00 97.8 F 89 20 154/98 95 Intake and Output 12/24/18 12/25/18 12/25/18 21:59 05:59 13:59 Intake Total 1500 1480 500 Output Total 550 300 900 Balance 950 1180 -400 Intake: IV 1000 1000 500 Sodium Chloride 0.45% 1,000 ml 1000 1000 @ 84 mls/hr IV .[id number] [facility] Rx# :[id number] Vancomycin 1,500 mg In Sodium 500 Chloride 0.9% 500 ml @ 333.3 mls/hr IV Q12H [facility] Rx#: [id number] Oral 500 480 Output: Void Amount 550 300 900 Other: # Bowel Movements 1 Weight 319 lb Additional comments: General: No acute distress Skin: Right axillary surgical site with wound VAC in place, no surrounding erythema, minimal tenderness Medical - DS: Data Procedures and tests throughout hospitalization: Date of procedure: 12/23/18 Pre-op diagnosis: axillary abscess and lymphadenopathy ,right Post-op diagnosis: other (axillary abscess and lymphadenopathy,right) Procedure: excisional debridement and lymphadenectomy ,right axilla Grafts/Implants: No Anesthesia: GLMA Findings: thick inflammatory ,fluctuant mass of right axilla with necrotic center Complications: none Surgeon: Houston Cruz Specimens Removed/Pathology: other (tissue from right axilla) Condition: stable Disposition: other (recovered in O.R. DUE TO MDRO STATUS) Labs on day of discharge: Preliminary micro results at discharge 12/21/18 16:25 Blood Culture - Preliminary Blood 12/21/18 16:30 Blood Culture - Preliminary Blood - Impressions Right axillary ultrasound, 12/21/18 IMPRESSION: Cellulitis in the right axilla and no evidence of an abscess CT of abdomen and pelvis, 12/22/18 IMPRESSION: Discoid atelectasis in both lung bases No acute abnormality is seen within the abdomen or pelvis. The kidneys and urinary tracts are normal. Medical - DS: A/P - Patient/Caregiver Discharge Instructions Activity: increase activity as tolerated, other (wound care as instructed) Diet: Regular Diet Prescriptions: oxyCODONE HCL [Roxicodone] 5 mg PO Q8H PRN #30 tab PRN Reason: Pain Level 3-6 - Problem Maintenance (1) Cutaneous abscess of right axilla Status: Resolved - Follow up Plan Follow up with: Raymon Tirado MD [Physician] - Zeenat De Luna [Primary Care Provider] - Disposition: Home, Self-Care Prognosis: Good Rehab Potential: Good Overall status at discharge: patient is progressing back to baseline Medical - DS: Qual - VTE Deep Vein Thrombosis/Pulmonary Embolism Present on Admission: No
--- NOTE | 2018-12-29 16:03 | Operative Note ---
DATE OF OPERATION: 12/23/2018 PREOPERATIVE DIAGNOSIS: Axillary abscess with lymphadenopathy. POSTOPERATIVE DIAGNOSIS: Right axillary abscess with lymphadenitis. PROCEDURE: Excisional debridement and lymphadenectomy, right axilla. SURGEON: Houston Cruz M.D. FINDINGS: Thick, inflammatory, fluctuant mass of right axilla with necrotic center. DESCRIPTION OF PROCEDURE: Under general anesthesia, the right axilla was prepped and draped in the sterile field. Transverse incision was made across the lower one-third of the axilla over the mass. The mass appeared to be necrotic fat and nodes. The tissue was widely debrided down to the superficial axillary fascia. All necrotic tissue was excised, including the superficial nodes in the lower third. The inflammatory process did not seem to extend into the deep axilla. Hemostasis was achieved with electrocautery. Irrigation with bacitracin solution was carried out. The wound was packed with 4 x 5-inch Aquacel AG gauze x2. This was covered with dry gauze and tape. The patient tolerated the procedure well. She was awakened from anesthesia uneventfully, transferred to a bed, and was recovered in the operating room due to her MDRO status. LCS:sushila Job ID: [id number] Doc ID: [id number] Houston Cruz M.D.
== END 2018-12-25 14:35 | disposition home or self-care (01) | DRG 857 ==
LOC: ED 15:14 → MEDSUR 18:49
PROVIDERS: ADMIT Internal Medicine; ATTEND Internal Medicine

== ENCOUNTER 2025-09-25 13:24 | Inpatient (IN) ==
[2025-09-25] MEDS ORDERED: IOPAMIDOL 100 ML BOTTLE IV ONE (13:25)
[2025-09-25 14:10] LABS: Basophils # (Auto) 0.03 K/mcL (0.00-0.30); Basophils % (Auto) 0.2 % (0.0-2.0); Eosinophils # (Auto) 0.03 K/mcL (0.00-0.70); Eosinophils % (Auto) 0.2 % (0.0-7.0); Hematocrit 37.0 % (34.1-44.9); Hemoglobin 11.9 g/dL (11.2-15.7); Lymphocytes # (Auto) 1.91 K/mcL (1.50-4.80); Lymphocytes % (Auto) 14.6 % (15.5-49.0); Mean Corpuscular HGB Conc 32.2 g/dL (31.0-36.0); Monocytes # (Auto) 0.85 K/mcL (0.10-0.90); Monocytes % (Auto) 6.5 % (1.0-12.0); Neutrophils % (Auto) 77.8 % (38.0-78.0); Platelet Count 249 K/mcL (140-440); RBC 3.94 M/mcL (3.59-5.38); WBC 13.1 K/mcL (4.5-11.0)
[2025-09-25 14:28] LABS: ALT/SGPT 57 U/L (<40); AST/SGOT 56 U/L (<32); Albumin 3.5 gm/dL (3.2-5.2); Albumin/Globulin Ratio 1.2 (1.0-2.3); Alkaline Phosphatase 101 U/L (39-117); Anion Gap 13.0 (8.0-16.0); Bilirubin,Total 0.7 mg/dL (0.1-1.0); Blood Urea Nitrogen 12 mg/dL (6-20); C-Reactive Protein 25.70 mg/dL (0.03-0.80); Calcium 8.4 mg/dL (8.6-10.4); Carbon Dioxide 20 mmol/L (22-30); Chloride 101 mmol/L (96-108); Globulin 3.0 gm/dL (2.2-3.7); Glucose 111 mg/dL (70-105); Potassium 3.8 mmol/L (3.3-5.1); Sodium 134 mmol/L (133-145)
[2025-09-25 14:41] LABS: INR 1.1 (0.9-1.1); Prothrombin Time 15.3 sec (11.9-14.5)
[2025-09-25] MEDS: VANCOMYCIN 2,000 MG in 0.9 % SODIUM CHLORIDE 500 ML IV ONE ×2 (14:44)
[2025-09-25] MEDS: MAGNESIUM SULFATE 2 GM/50 ML BAG IV ONE (15:56)
[2025-09-25] MEDS ORDERED: ALBUTEROL SULFATE 2.5 MG/3 ML NEBULIZER NEB PRN (16:38)
[2025-09-25 17:38] LABS: Bacteria,Urine Few /hpf (0); Bilirubin,Urine SMALL mg/dL (Negative); Color,Urine DK. YELLOW; Glucose,Urine (UA) NEGATIVE (Negative); Ketones,Urine NEGATIVE (Negative); Leukocyte Esterase,Urine NEGATIVE /uL (Negative); Mucus,Urine Few /hpf; PH,Urine 6.0 (5.0-9.0); Protein,Urine TRACE mg/dL (Negative); Specific Gravity,Urine 1.010 (1.000-1.035); Urobilinogen,Urine 2.0 mg/dL
[2025-09-25] MEDS: IPRATROPIUM/ALBUTEROL 3 ML AMPUL.NEB NEB SCH (18:15)
[2025-09-25] MEDS ORDERED: ONDANSETRON 4 MG/2 ML VIAL IV PRN (18:43)
[2025-09-25] MEDS ORDERED: LACTULOSE 20 GM/30 ML ORAL.SOL PO PRN (18:43)
[2025-09-25] MEDS ORDERED: VANCOMYCIN PER PHARMACY IV SCH (18:43)
[2025-09-25] MEDS: LACTATED RINGERS 1,000 ML IV ONE (19:05)
[2025-09-25] MEDS: HYDROmorphone 0.5 MG/0.5 ML SYRINGE IV PRN (19:06)
[2025-09-25] MEDS: ACETAMINOPHEN 1,000 MG/100 ML BAG IV SCH (19:06)
[2025-09-25] MEDS: LACTATED RINGERS 1,000 ML IV SCH (20:48)
[2025-09-25] MEDS: SENNOSIDES 1 TABLET PO SCH (20:58)
[2025-09-25] MEDS: ENOXAPARIN 40 MG/0.4 ML SYRINGE SQ SCH (20:59)
[2025-09-25] MEDS: 0.9 % SODIUM CHLORIDE 10 ML SYRINGE IV SCH (21:05)
[2025-09-25] MEDS: VANCOMYCIN 1,000 MG in 0.9 % SODIUM CHLORIDE 250 ML IV ONE (21:53)
[2025-09-25] MEDS ORDERED: VANCOMYCIN 2,000 MG in 0.9 % SODIUM CHLORIDE 500 ML IV SCH (22:00)
[2025-09-26] MEDS: KETOROLAC 15 MG/ML VIAL IV PRN (02:09)
[2025-09-26 06:02] LABS: Basophils # (Auto) 0.01 K/mcL (0.00-0.30); Basophils % (Auto) 0.1 % (0.0-2.0); Eosinophils # (Auto) 0 K/mcL (0.00-0.70); Eosinophils % (Auto) 0 % (0.0-7.0); Hematocrit 35.7 % (34.1-44.9); Hemoglobin 11.5 g/dL (11.2-15.7); Lymphocytes # (Auto) 1.04 K/mcL (1.50-4.80); Lymphocytes % (Auto) 7.5 % (15.5-49.0); Mean Corpuscular HGB Conc 32.2 g/dL (31.0-36.0); Monocytes # (Auto) 0.45 K/mcL (0.10-0.90); Monocytes % (Auto) 3.2 % (1.0-12.0); Neutrophils % (Auto) 88.8 % (38.0-78.0); Platelet Count 227 K/mcL (140-440); RBC 3.71 M/mcL (3.59-5.38); WBC 13.9 K/mcL (4.5-11.0)
[2025-09-26 06:13] LABS: ALT/SGPT 43 U/L (<40); AST/SGOT 33 U/L (<32); Albumin 3.3 gm/dL (3.2-5.2); Albumin/Globulin Ratio 1.1 (1.0-2.3); Alkaline Phosphatase 76 U/L (39-117); Anion Gap 11.0 (8.0-16.0); Bilirubin,Direct 0.3 mg/dL (<0.3); Bilirubin,Total 0.4 mg/dL (0.1-1.0); Blood Urea Nitrogen 17 mg/dL (6-20); Calcium 8.1 mg/dL (8.6-10.4); Carbon Dioxide 19 mmol/L (22-30); Chloride 101 mmol/L (96-108); Globulin 3.0 gm/dL (2.2-3.7); Glucose 231 mg/dL (70-105); Phosphorous 2.6 mg/dL (2.5-4.5); Potassium 4.2 mmol/L (3.3-5.1); Sodium 131 mmol/L (133-145); Triglycerides 149 mg/dL (<150); Uric Acid 5.1 mg/dL (2.5-8.0)
[2025-09-26] MEDS: OMEPRAZOLE 20 MG CAPSULE PO SCH (08:28)
[2025-09-26] MEDS: MONTELUKAST 10 MG TABLET PO SCH (08:28)
[2025-09-26] MEDS: CETIRIZINE 10 MG TABLET PO SCH (08:28)
[2025-09-26] MEDS ORDERED: VANCOMYCIN 2,000 MG in 0.9 % SODIUM CHLORIDE 500 ML IV SCH (09:00)
[2025-09-26] MEDS ORDERED: DEXTROSE 31 GM ORAL.SUSP PO PRN (09:05)
[2025-09-26] MEDS ORDERED: DEXTROSE 50% 50 ML VIAL IV PRN (09:05)
[2025-09-26] MEDS: LACTATED RINGERS 1,000 ML IV SCH (10:16)
[2025-09-26] MEDS: VANCOMYCIN 1,500 MG in 0.9 % SODIUM CHLORIDE 500 ML IV SCH (11:34)
[2025-09-26] MEDS: INSULIN LISPRO 1 UNIT/0.01 ML UNIT SQ SCH (11:47)
[2025-09-26 12:08] LABS: Estimated Average Glucose(eAG) 120.0 mg/dL; Hemoglobin A1C 5.8 % Hgb (4.0-6.0)
[2025-09-26] MEDS: ZOLPIDEM 5 MG TABLET PO PRN (22:24)
[2025-09-27 06:03] LABS: Basophils # (Auto) 0 K/mcL (0.00-0.30); Basophils % (Auto) 0 % (0.0-2.0); Eosinophils # (Auto) 0.01 K/mcL (0.00-0.70); Eosinophils % (Auto) 0.1 % (0.0-7.0); Hematocrit 32.0 % (34.1-44.9); Hemoglobin 10.3 g/dL (11.2-15.7); Lymphocytes # (Auto) 1.65 K/mcL (1.50-4.80); Lymphocytes % (Auto) 11.4 % (15.5-49.0); Mean Corpuscular HGB Conc 32.2 g/dL (31.0-36.0); Monocytes # (Auto) 0.96 K/mcL (0.10-0.90); Monocytes % (Auto) 6.6 % (1.0-12.0); Neutrophils % (Auto) 81.3 % (38.0-78.0); Platelet Count 243 K/mcL (140-440); RBC 3.35 M/mcL (3.59-5.38); WBC 14.5 K/mcL (4.5-11.0)
[2025-09-27 06:24] LABS: C-Reactive Protein 17.30 mg/dL (0.03-0.80)
[2025-09-27 06:29] LABS: ALT/SGPT 33 U/L (<40); AST/SGOT 20 U/L (<32); Albumin 3.3 gm/dL (3.2-5.2); Albumin/Globulin Ratio 1.1 (1.0-2.3); Alkaline Phosphatase 77 U/L (39-117); Anion Gap 11.0 (8.0-16.0); Bilirubin,Direct < 0.2 mg/dL (0-0.3); Bilirubin,Total 0.2 mg/dL (0.1-1.0); Blood Urea Nitrogen 17 mg/dL (6-20); Calcium 8.3 mg/dL (8.6-10.4); Carbon Dioxide 20 mmol/L (22-30); Chloride 104 mmol/L (96-108); Globulin 2.9 gm/dL (2.2-3.7); Glucose 200 mg/dL (70-105); Phosphorous 1.8 mg/dL (2.5-4.5); Potassium 3.9 mmol/L (3.3-5.1); Sodium 135 mmol/L (133-145); Triglycerides 181 mg/dL (<150); Uric Acid 5.0 mg/dL (2.5-8.0)
[2025-09-27] MEDS: INSULIN LISPRO 1 UNIT/0.01 ML UNIT SQ SCH (07:33)
[2025-09-27] MEDS: POTASSIUM PHOSPHATE 20 MEQ in DEXTROSE 5% IN WATER 250 ML IV ONE ×2 (10:28→11:53)
[2025-09-27] MEDS: IPRATROPIUM/ALBUTEROL 3 ML AMPUL.NEB NEB SCH (13:35)
[2025-09-27] MEDS: KETOROLAC 15 MG/ML VIAL IV ONE (20:03)
[2025-09-27] MEDS: ZOLPIDEM 5 MG TABLET PO PRN (21:24)
[2025-09-28 06:43] LABS: Basophils # (Auto) 0 K/mcL (0.00-0.30); Basophils % (Auto) 0 % (0.0-2.0); Eosinophils # (Auto) 0.11 K/mcL (0.00-0.70); Eosinophils % (Auto) 0.7 % (0.0-7.0); Hematocrit 32.9 % (34.1-44.9); Hemoglobin 10.6 g/dL (11.2-15.7); Lymphocytes # (Auto) 3.14 K/mcL (1.50-4.80); Lymphocytes % (Auto) 21.3 % (15.5-49.0); Mean Corpuscular HGB Conc 32.2 g/dL (31.0-36.0); Monocytes # (Auto) 1.44 K/mcL (0.10-0.90); Monocytes % (Auto) 9.8 % (1.0-12.0); Neutrophils % (Auto) 67.0 % (38.0-78.0); Platelet Count 300 K/mcL (140-440); RBC 3.49 M/mcL (3.59-5.38); WBC 14.7 K/mcL (4.5-11.0)
[2025-09-28 06:49] LABS: ALT/SGPT 46 U/L (<40); AST/SGOT 48 U/L (<32); Albumin 3.5 gm/dL (3.2-5.2); Albumin/Globulin Ratio 1.1 (1.0-2.3); Alkaline Phosphatase 118 U/L (39-117); Anion Gap 10.0 (8.0-16.0); Bilirubin,Direct 0.2 mg/dL (<0.3); Bilirubin,Total 0.4 mg/dL (0.1-1.0); Blood Urea Nitrogen 17 mg/dL (6-20); Calcium 8.8 mg/dL (8.6-10.4); Carbon Dioxide 22 mmol/L (22-30); Chloride 104 mmol/L (96-108); Globulin 3.1 gm/dL (2.2-3.7); Glucose 99 mg/dL (70-105); Phosphorous 2.5 mg/dL (2.5-4.5); Potassium 4.0 mmol/L (3.3-5.1); Sodium 136 mmol/L (133-145); Triglycerides 135 mg/dL (<150); Uric Acid 4.9 mg/dL (2.5-8.0)
[2025-09-28] MEDS: KETOROLAC 30 MG/ML VIAL IV ONE (09:31)
[2025-09-28] MEDS: FUROSEMIDE 100 MG/10 ML VIAL IV ONE (09:31)
[2025-09-28 16:05] LABS: RBC Morphology NORMAL (Normal)
[2025-09-29 08:19] LABS: ALT/SGPT 77 U/L (<40); AST/SGOT 62 U/L (<32); Albumin 3.3 gm/dL (3.2-5.2); Albumin/Globulin Ratio 1.1 (1.0-2.3); Alkaline Phosphatase 87 U/L (39-117); Anion Gap 10.0 (8.0-16.0); Basophils # (Auto) 0.02 K/mcL (0.00-0.30); Basophils % (Auto) 0.2 % (0.0-2.0); Bilirubin,Direct 0.2 mg/dL (<0.3); Bilirubin,Total 0.4 mg/dL (0.1-1.0); Blood Urea Nitrogen 20 mg/dL (6-20); C-Reactive Protein 7.09 mg/dL (0.03-0.80); Calcium 8.7 mg/dL (8.6-10.4); Carbon Dioxide 24 mmol/L (22-30); Chloride 105 mmol/L (96-108); Eosinophils # (Auto) 0.15 K/mcL (0.00-0.70); Eosinophils % (Auto) 1.2 % (0.0-7.0); Globulin 3.0 gm/dL (2.2-3.7); Glucose 86 mg/dL (70-105); Hematocrit 31.0 % (34.1-44.9); Hemoglobin 10.1 g/dL (11.2-15.7); Lymphocytes # (Auto) 3.36 K/mcL (1.50-4.80); Lymphocytes % (Auto) 27.1 % (15.5-49.0); Mean Corpuscular HGB Conc 32.6 g/dL (31.0-36.0); Monocytes # (Auto) 1.01 K/mcL (0.10-0.90); Monocytes % (Auto) 8.2 % (1.0-12.0); Neutrophils % (Auto) 59.5 % (38.0-78.0); Phosphorous 2.9 mg/dL (2.5-4.5); Platelet Count 314 K/mcL (140-440); Potassium 3.6 mmol/L (3.3-5.1); RBC 3.27 M/mcL (3.59-5.38); Sodium 139 mmol/L (133-145); Triglycerides 124 mg/dL (<150); Uric Acid 5.6 mg/dL (2.5-8.0); WBC 12.4 K/mcL (4.5-11.0)
[2025-09-29] MEDS: IPRATROPIUM/ALBUTEROL 3 ML AMPUL.NEB NEB PRN (08:37)
[2025-09-29] MEDS: OLMESARTAN MEDOXOMIL 20 MG TABLET PO SCH (09:38)
[2025-09-29] MEDS: LINEZOLID 600 MG TABLET PO SCH (20:47)
[2025-09-30] MEDS: FUROSEMIDE 40 MG/4 ML VIAL IV ONE (09:04)
[2025-09-30] MEDS: POTASSIUM CHLORIDE 20 MEQ TABLET PO ONE (09:04)
[2025-09-30 11:54] VITALS: O2SAT 97
[2025-09-30 11:55] VITALS: TEMP 97.2
== END 2025-09-30 13:12 | disposition home or self-care (01) | DRG 872 ==
LOC: ED 13:24 → ICU 18:39
PROVIDERS: ADMIT Internal Medicine; ATTEND Internal Medicine